=== PATIENT | female | born 1965 | race African-American/Black ===

== ENCOUNTER 2017-04-03 12:27 | Emergency (ER) | payer OTHER ==
--- NOTE | 2017-04-03 13:28 | RAD ---
RIGHT KNEE FOUR VIEWS: History: 51-year-old female with right knee pain. FINDINGS: Some hypertrophic osteophytosis of the posterior superior patella. Increased density in the suprapate llar recess, evidence for joint effusion. Multiple small up to 0.3 cm diameter calcific or ossific fo ci which appear to be within the anterior joint and probably represent multiple intraarticular bodies . There are some tricompartment degenerative changes as well as arthrosis of the proximal tibiofibula r joint. IMPRESSION: Evidence for multiple intraarticular bodies. Joint effusion with suprapatellar recess fluid. Other de generative changes. No acute fracture or dislocation. POS: [facility]
[2017-04-03] MEDS ORDERED: Ketorolac Tromethamine 30 MG/ML VIAL ONE (13:47)
[2017-04-03] MEDS ORDERED: Famotidine/PF 20 mg/2ml Vial ONE (14:43)
== END 2017-04-03 15:10 | disposition home or self-care (01) ==
LOC: ERS 12:27
DX: M25.561 Pain in right knee (principal); E78.5 Hyperlipidemia, unspecified; I10 Essential (primary) hypertension; J45.909 Unspecified asthma, uncomplicated; F31.9 Bipolar disorder, unspecified; F90.9 Attention-deficit hyperactivity disorder, unspecified type; F17.210 Nicotine dependence, cigarettes, uncomplicated; F41.9 Anxiety disorder, unspecified
CPT/HCPCS: 96372; J1885; S0028

== ENCOUNTER 2017-05-09 09:13 | Outpatient (CLI) | payer OTHER | END 2017-05-09 09:14 | disposition home or self-care (01) | LOC: MRI 09:13 → BICMRI 09:14 | PROVIDERS: ATTEND Family Medicine | DX: M54.31 Sciatica, right side (principal); M48.061 Spinal stenosis, lumbar region without neurogenic claudication | CPT/HCPCS: 72148 ==

== ENCOUNTER 2017-10-07 11:08 | Emergency (ER) | payer OTHER ==
[2017-10-07] MEDS ORDERED: Acetaminophen/Codeine 30-300mg Tablet ONE (12:03)
[2017-10-07] MEDS ORDERED: predniSONE 20 MG TAB ONE (12:04)
--- NOTE | 2017-10-07 13:26 | RAD ---
RIGHT KNEE 4 VIEWS: HISTORY: Right knee pain. FINDINGS: Comparison is made with the exam of 05/17/17. Degenerative changes are again seen. No acute fracture , dislocation, or bony destruction is identified. A joint effusion is again seen. Multiple intraart icular bodies in the anterior joint space are redemonstrated. IMPRESSION: Stable exam. POS: [facility]
[2017-10-07] MEDS ORDERED: Ondansetron HCl/PF 4 MG/2 ML Vial ONE (13:45)
== END 2017-10-07 14:05 | disposition home or self-care (01) ==
LOC: ERS 11:08
DX: M10.9 Gout, unspecified (principal); M25.561 Pain in right knee; E78.5 Hyperlipidemia, unspecified; I10 Essential (primary) hypertension; J45.909 Unspecified asthma, uncomplicated; F41.9 Anxiety disorder, unspecified; F31.9 Bipolar disorder, unspecified; F90.9 Attention-deficit hyperactivity disorder, unspecified type; F17.210 Nicotine dependence, cigarettes, uncomplicated
CPT/HCPCS: J2405; J7506

== ENCOUNTER 2017-11-01 11:52 | Outpatient (CLI) | payer OTHER ==
--- NOTE | 2017-11-01 15:29 | MRI ---
MRI RIGHT KNEE WITHOUT CONTRAST: Date: 11/01/17 HISTORY: Pain. Swelling. No trauma. COMPARISON: Knee radiographs dated 10/11/17. FINDINGS: Medial Meniscus: Intact. Lateral Meniscus: There is maceration of the lateral meniscal body with lateral gutter extrusion. There is mucinous degeneration of the PCL. ACL has only mild mucinous degeneration. Extensor Mechanism: Quadriceps tendon, patella, and patellar tendon are all intact. Cartilage: Patellofemoral compartment: High grade chondral fraying of the lateral patellar facet and lateral tr ochlea with some subchondral reactive changes. Medial compartment: Mild chondral fissuring along the posterior weightbearing surfaces of the medial femoral condyle. Lateral compartment: High grade full thickness cartilage fissuring along the central weightbearing s urface and medial femoral condyle and medial tibial plateau posteriorly. Also, along the lateral femo ral condyle, is a high grade cartilage defect extending from the lateral articular margin to the cent ral portion measuring 11.0 mm in transverse x 16.0 mm AP dimension. Soft Tissues: Very large joint effusion. There is a debris-containing popliteal cyst with a thick wall indicating c hronicity. Calcifications are present along the anterior horn of the lateral meniscus, degenerative i n nature. Muscles: There is edema within the popliteus, as well as the anterior and lateral compartment of the leg. Bones: Advanced degenerative change proximal tibiofibular joint. Large osteophytes lateral compartment. Subc hondral impaction fracture of the lateral tibial plateau, likely sequelae of insufficiency. IMPRESSION: 1. Marked edema of the lateral tibial plateau with subchondral insufficiency fracture, likely sequel ae of the lateral meniscal maceration and cartilage loss. 2. Edema within the anterior and lateral compartments of the leg and the popliteus muscle. This may be sequelae of nerve inflammation from the extensive soft tissue edema. 3. Very large joint effusion, as well as complex popliteal cyst with evidence of leak. 4. 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 Large c hondral defect of the lateral compartment. POS: [facility]
== END 2017-11-01 11:53 | disposition home or self-care (01) ==
LOC: MRI 11:52
PROVIDERS: ATTEND Family Medicine
DX: M23.91 Unspecified internal derangement of right knee (principal); R60.0 Localized edema; M25.461 Effusion, right knee; M22.41 Chondromalacia patellae, right knee

== ENCOUNTER 2018-07-25 14:30 | Emergency (ER) | payer OTHER ==
[2018-07-25 15:05] LABS: Bilirubin Negative (Negative); Blood, Urine Trace (Negative); Clarity CLOUDY (Clear); Glucose, Urine (Dipstick) Negative (Negative); Leukocyte Moderate (Negative); Nitrite Negative (Negative); Protein, Urine (Dipstick) Negative (Neg-Trace); Specific Gravity, Urine 1.022 (1.002-1.036); Urobilinogen 0.2 mg/dL (0.2-1.0)
--- NOTE | 2018-07-25 15:06 | RAD ---
UPRIGHT AND SUPINE ABDOMINAL RADIOGRAPHS: INDICATION: Abdominal pain after by mouth intake of mag citrate with a history of constipation for 8 days. FINDINGS: The bowel gas pattern is nonspecific but without overt evidence of obstruction. There are f luid gas levels seen within the colon which can be seen with diarrheal states. There are tubal ligation clips seen within the lower pelvis. There is mild thoracolumbar scoliosis. Lung bases are cl ear. No pneumoperitoneum is demonstrated. There is moderate chronic osteitis pubis. No acute osseous abnormality is evident. IMPRESSION: Air-fluid levels seen within the colon can be seen with diarrheal states. Transcribed Date/Time: 07/25/2018 3:12 PM
[2018-07-25 15:17] LABS: #Basophils 0.1 thou/uL (0.0-0.2); #Eosinphils 0.1 thou/uL (0.0-0.7); #Lymphocytes 2.6 thou/uL (1.20-3.40); #Monocytes 0.4 thou/uL (0.11-0.59); #Neutrophils 7.1 thou/uL (1.40-6.50); %Basophils 0.7 % (0.0-1.0); %Lymphocytes 25.2 % (21.0-51.0); %Neutrophils 69.1 % (42.0-75.0); Hemoglobin 14.4 g/dL (12.0-16.0); Mean Corpuscular HGB CONC 33.1 g/dL (32.0-36.0); Mean Corpuscular Hemoglobin 32.5 pg (27.0-31.0); Mean Corpuscular Volume 98.3 fL (78.0-98.0); Mean Platelet Volume 8.4 fL (7.4-10.4); Platelet Count 223 thou/uL (130-400); RBC Distribution Width 11.6 % (11.5-14.5); Red Blood Cell (RBC) Count 4.43 mill/uL (4.20-5.40); White Blood Cell (WBC) Count 10.2 thou/uL (4.8-10.8)
[2018-07-25 15:19] LABS: Bacteria/HPF 1+ HPF (None Seen); Trichomonas/HPF 1+ HPF (None Seen)
[2018-07-25 15:20] LABS: Hyaline Casts/LPF NONE SEEN LPF (0-3 Hyaline)
[2018-07-25 15:40] LABS: ALT (SGPT) 11 U/L (8-55); AST (SGOT) 13 U/L (5-34); Albumin 4.3 g/dL (3.5-5.0); Alkaline Phosphatase 74 U/L (40-150); Anion Gap 15 mmol/L (10-20); BUN (Urea Nitrogen) 15 mg/dL (9.8-20.1); Bilirubin, Total 0.3 mg/dL (0.2-1.2); Calc. Creatinine Clearance 0 mL/min (70-130); Calcium 9.9 mg/dL (7.8-10.44); Carbon Dioxide 22 mmol/L (22-29); Chloride 104 mmol/L (98-107); Estimated GFR-MDRD 71; Globulin 3.4 g/dL (2.4-3.5); Glucose 92 mg/dL (70-105); Lipase 64 U/L (8-78); Potassium 3.5 mmol/L (3.5-5.1); Protein, Total 7.7 g/dL (6.0-8.3); Sodium 137 mmol/L (136-145)
== END 2018-07-25 16:55 | disposition home or self-care (01) ==
LOC: ERS 14:30
DX: K59.00 Constipation, unspecified (principal); N30.90 Cystitis, unspecified without hematuria; E78.5 Hyperlipidemia, unspecified; I10 Essential (primary) hypertension; J45.909 Unspecified asthma, uncomplicated; F41.9 Anxiety disorder, unspecified; F90.9 Attention-deficit hyperactivity disorder, unspecified type; F31.9 Bipolar disorder, unspecified; F17.210 Nicotine dependence, cigarettes, uncomplicated
CPT/HCPCS: 36415; 74019; 80053; 81003; 81015; 83690; 85025

== ENCOUNTER 2018-12-14 00:32 | Emergency (ER) | payer OTHER ==
[2018-12-14 01:09] LABS: Bilirubin Negative (Negative); Blood, Urine 1+ (Negative); Clarity Turbid (Clear); Glucose, Urine (Dipstick) Normal (Negative); Leukocyte 250 Leu/uL (Negative); Mucous/LPF Rare LPF (<2+); Nitrite Negative (Negative); Protein, Urine (Dipstick) 70 mg/dL (Neg-Trace); Squamous Epithelial 21-50 HPF (0-3); WBC/HPF 21-50 HPF (0-3)
[2018-12-14 01:10] LABS: Bacteria/HPF 1+ HPF (None Seen)
[2018-12-14] MEDS ORDERED: cefTRIAXone\\ROCEPHIN 1 GM VIAL ONE (01:31)
[2018-12-14] MEDS ORDERED: Azithromycin 500 MG VIAL ONE (01:31)
[2018-12-14] MEDS ORDERED: Ketorolac Tromethamine 30 MG/ML VIAL ONE (02:22)
[2018-12-14] MEDS ORDERED: Ondansetron PF 4 MG/2 ML Vial ONE (02:22)
[2018-12-14 02:23] LABS: Mean Corpuscular HGB CONC 34.2 g/dL (32.0-36.0); Mean Corpuscular Hemoglobin 32.8 pg (27.0-31.0); Mean Corpuscular Volume 95.8 fL (78.0-98.0); Mean Platelet Volume 8.1 fL (7.4-10.4); Platelet Count 231 thou/uL (130-400); RBC Distribution Width 11.6 % (11.5-14.5); Red Blood Cell (RBC) Count 3.65 mill/uL (4.20-5.40); White Blood Cell (WBC) Count 20.9 thou/uL (4.8-10.8)
[2018-12-14 02:37] LABS: Band 7 % (5-11); Lymphocytes 3 % (21-51); MDiff Complete? YES; Monocytes 1 % (0-10); Neutrophil 89 % (42-75); Platelet Morphology Comment Appears Adequate; RBC Morphology Normal
[2018-12-14 02:43] LABS: ALT (SGPT) 10 U/L (8-55); AST (SGOT) 11 U/L (5-34); Albumin 2.9 g/dL (3.5-5.0); Alkaline Phosphatase 94 U/L (40-110); Anion Gap 13 mmol/L (10-20); BUN (Urea Nitrogen) 9 mg/dL (9.8-20.1); Bilirubin, Total 0.9 mg/dL (0.2-1.2); Calc. Creatinine Clearance 0 mL/min (70-130); Calcium 8.7 mg/dL (7.8-10.44); Carbon Dioxide 20 mmol/L (22-29); Chloride 105 mmol/L (98-107); Estimated GFR-MDRD 74; Globulin 3.7 g/dL (2.4-3.5); Glucose 109 mg/dL (70-105); Potassium 3.4 mmol/L (3.5-5.1); Protein, Total 6.6 g/dL (6.0-8.3); Sodium 135 mmol/L (136-145)
--- NOTE | 2018-12-14 09:01 | CT ---
PRELIMINARY REPORT/[facility]/EMERGENCY AFTER HOURS PROCEDURE: PROCEDURE INFORMATION: Exam: CT Abdomen And Pelvis Without Contrast Exam date and time: 12/14/2018 1:02 AM Clinical history: 53 years old, female; Abdominal pain; Patient HX: F53 presents to the ED for evalua tion of left flank pain, described as sharp and stabbing, x 3 days. TECHNIQUE: Imaging protocol: Computed tomography of the abdomen and pelvis without contrast. COMPARISON: No relevant prior studies available. FINDINGS: Lungs: Consolidation in the left lung base. Liver: No liver masses. Gallbladder and bile ducts: Normal appearance of the gallbladder. No ductal dilation. Pancreas: No pancreatic mass or ductal dilation. Spleen: No mass. Adrenals: No adrenal nodules. Kidneys and ureters: No nephroureterolithiasis or hydronephrosis. Stomach and bowel: No evidence of obstruction or bowel wall thickening. Appendix: Normal appendix. Intraperitoneal space: Trace free fluid in the pelvis. Vasculature: Atherosclerosis of the aorta without aneurysm. Lymph nodes: No lymphadenopathy. Bladder: The bladder is decompressed. Reproductive: Normal appearance of the uterus and adnexa. Bilateral tubal ligation clips. Bones/joints: Old right lateral seventh rib fracture. Increased sclerosis of the lumbar spine pedicle s and lamina likely due to degenerative changes given extensive bilateral facet arthropathy. Sclerosi s and cystic changes of the pubic symphysis. Chronic mild loss of L1 vertebral body height. Soft tissues: Small bilateral fat-containing inguinal hernias. Tiny fat-containing umbilical hernia. IMPRESSION: 1. Consolidation in the left lung base is consistent with pneumonia. 2. No acute findings in the abdomen or pelvis. 3. No nephroureterolithiasis or hydronephrosis. Thank you for allowing us to participate in the care of your patient. Dictated and Authenticated by: Selam Pablo MD 12/14/2018 1:24 AM Central Time ([place] & [place]) FINAL REPORT CT ABDOMEN AND PELVIS: FINDINGS: There is consolidation in the left lung base. Tiny pericardial effusion. Liver, spleen, pancreas, and kidneys unremarkable. Bowel loops unremarkable. No acute intraabdomina l process. Small amount of fluid in the cul-de-sac is noted. I am in agreement with the preliminary report.
== END 2018-12-14 03:50 | disposition home or self-care (01) ==
LOC: ERS 00:32
DX: J18.1 Lobar pneumonia, unspecified organism (principal); I10 Essential (primary) hypertension; J45.909 Unspecified asthma, uncomplicated; E78.5 Hyperlipidemia, unspecified; E78.00 Pure hypercholesterolemia, unspecified; F41.9 Anxiety disorder, unspecified; F31.9 Bipolar disorder, unspecified; F90.9 Attention-deficit hyperactivity disorder, unspecified type; F17.210 Nicotine dependence, cigarettes, uncomplicated; Z79.899 Other long term (current) drug therapy
CPT/HCPCS: 36415; 74176; 80053; 81003; 81015; 85025; 87040; 96361; 96365; 96367; 96375; J0456; J0696; J1885; J2405

== ENCOUNTER 2019-02-26 00:01 | Inpatient (IN) | payer OTHER ==
[2019-02-26] MEDS ORDERED: Ketorolac Tromethamine 60 MG/2 ML VIAL ONE (00:15)
[2019-02-26] MEDS ORDERED: Ondansetron ODT 4 MG TAB PO PRN (01:51)
[2019-02-26] MEDS ORDERED: Morphine 2 MG/ML SYRINGE SLOW IVP PRN ×2 (01:51→07:05)
[2019-02-26] MEDS ORDERED: Dextrose 5% in Water 1,000 ML IV PRN (01:51)
[2019-02-26] MEDS ORDERED: Ondansetron PF 4 MG/2 ML Vial IVP PRN (01:51)
[2019-02-26] MEDS ORDERED: Dextrose 50% Abboject 50 ML SYRINGE SLOW IVP PRN (01:51)
[2019-02-26] MEDS ORDERED: hydrALAZINE 20 MG/ML VIAL SLOW IVP PRN (01:51)
[2019-02-26 01:55] LABS: #Eosinphils 0.1 thou/uL (0.0-0.7); #Lymphocytes 2.6 thou/uL (1.20-3.40); #Monocytes 0.4 thou/uL (0.11-0.59); #Neutrophils 7.4 thou/uL (1.40-6.50); %Basophils 0.3 % (0.0-1.0); %Eosinophils 0.6 % (0.0-10.0); %Lymphocytes 24.8 % (21.0-51.0); %Monocytes 3.9 % (0.0-10.0); %Neutrophils 70.3 % (42.0-75.0); Hemoglobin 14.9 g/dL (12.0-16.0); Mean Corpuscular HGB CONC 34.3 g/dL (32.0-36.0); Mean Corpuscular Hemoglobin 33.1 pg (27.0-31.0); Mean Corpuscular Volume 96.4 fL (78.0-98.0); Mean Platelet Volume 8.6 fL (7.4-10.4); Platelet Count 180 thou/uL (130-400); Red Blood Cell (RBC) Count 4.52 mill/uL (4.20-5.40); White Blood Cell (WBC) Count 10.5 thou/uL (4.8-10.8)
[2019-02-26] MEDS ORDERED: traMADol HCl 50 MG TAB PO PRN ×2 (02:06→07:05)
[2019-02-26 02:17] LABS: ALT (SGPT) 13 U/L (8-55); AST (SGOT) 18 U/L (5-34); Albumin 4.4 g/dL (3.5-5.0); Alkaline Phosphatase 72 U/L (40-110); Anion Gap 12 mmol/L (10-20); BUN (Urea Nitrogen) 20 mg/dL (9.8-20.1); Bilirubin, Total 0.5 mg/dL (0.2-1.2); Calc. Creatinine Clearance 0 mL/min (70-130); Calcium 9.8 mg/dL (7.8-10.44); Carbon Dioxide 24 mmol/L (22-29); Chloride 106 mmol/L (98-107); Estimated GFR-MDRD 70; Globulin 3.4 g/dL (2.4-3.5); Glucose 86 mg/dL (70-105); Phosphorus 3.5 mg/dL (2.3-4.7); Potassium 4.1 mmol/L (3.5-5.1); Protein, Total 7.8 g/dL (6.0-8.3); Sodium 138 mmol/L (136-145)
[2019-02-26 02:22] LABS: PTT 31.9 SEC (22.9-36.1); Prothrombin Time 12.7 SEC (12.0-14.7)
--- NOTE | 2019-02-26 03:07 | HP ---
REQUESTING PHYSICIAN: Beverly Mccabe MD, ER Physician. CONSULTS: Orthopedic Surgery, Dr. Walton. PRIMARY CARE PHYSICIAN: Akil Giron MD CHIEF COMPLAINT: Left hip pain. HISTORY OF PRESENT ILLNESS: This is a 53-year-old female, who presented to the emergency room with left hip pain after she fell from the back of a large pickup truck. The patient does have a history of schizophrenia, anxiety, depression, and bipolar. The patient states that she had been drinking beer and she slipped and fell, landing on her left hip. The incident happened around 9:30-10:00 p.m. The patient denies hitting her head or losing consciousness. The patient denies feeling weak, dizzy, shortness of breath or having any chest pain prior to falling. The patient reports drinking approximately 2 to 3 beers before falling. The patient denies any drug use. The patient denies any nausea or vomiting. ALLERGIES: NO KNOWN DRUG ALLERGIES. PAST MEDICAL HISTORY: Hypertension, schizophrenia, depression, bipolar, anxiety , arthritis, gout, and asthma. PAST SURGICAL HISTORY: Denies. SOCIAL HISTORY: The patient drinks socially 1 to 2 times a week. Denies any illicit drug use. The patient reports previous history of cocaine use several years ago. The patient smokes approximately 6 cigarettes a day since she was 23. The patient is single, lives at home alone. MEDICATIONS: 1. Seroquel 200 mg daily. 2. Hydrochlorothiazide 25 mg q.a.m. as needed. 3. Tramadol 50 mg once a day. 4. Albuterol inhaler. REVIEW OF SYSTEMS: A 10-point review of systems is negative unless otherwise indicated in the above HPI. OBJECTIVE: VITAL SIGNS: Blood pressure 147/95, pulse 88, respirations 18, temperature 98.4, SpO2 of 98% on room air. GENERAL: Middle-aged female, well-appearing, awake, alert, in no distress. HEENT: Head is atraumatic and normocephalic. Pupils are equal bilateral. Mucous membranes are moist. NECK: Normal range of motion. No cervical tenderness. Trachea midline. RESPIRATORY: Equal chest rise and fall. Bilateral breath sounds clear. No respiratory distress. CARDIAC: Regular rate, regular rhythm. No murmurs. ABDOMEN: Soft, nontender, nondistended. EXTREMITIES: Moves all extremities. Normal movement. Sensation intact. Distal pulses 2+ in all extremities. Tenderness to the left hip with palpation. NEUROLOGIC: GCS 15. No focal deficits. LABORATORY DATA: WBC 10.5, RBC 4.52, hemoglobin 14.9, hematocrit 43.6, platelets 180. PT 12.7, INR 1.0, APTT 31.9. Chemistry; sodium 138, potassium 4.1, chloride 106, BUN 20, creatinine 1.00, estimated GFR 70, glucose 86, calcium 9.8, phosphorus 3.5, magnesium 2.0, AST 18, ALT 13, plasma alcohol less than 10. DIAGNOSTIC DATA: A 12-lead EKG, sinus rhythm, left ventricular hypertrophy, prolonged QTc. Left hip x-ray, impression, nondisplaced left femoral neck fracture. Pelvis x-ray, impression, left femoral neck fracture. Chest x-ray, impression, Cardiomegaly without evidence of acute cardiopulmonary disease. IMPRESSION: 1. Status post fall from back of truck. 2. Left femoral neck fracture. 3. Acute traumatic pain. 4. History of hypertension, schizophrenia, anxiety, and depression. PLAN: We will admit the patient to the surgical floor. The patient will be n.p.o. and with maintenance fluids normal saline at 100 an hour. The patient is pending evaluation by Dr. Walton, Orthopedic Surgery, for plans of left hip fracture. We will place the patient on a pain regimen. We will also place the patient on Serax as she admits to drinking. We will place PT/OT consult to evaluate and treat postop. The plan was discussed with the patient, who agrees. The plan will be discussed with the attending after this dictation. Job ID: [id number] [facility]
[2019-02-26] MEDS: Sodium Chloride 0.9% 1,000 ML IV SCH ×3 (03:56→21:35)
[2019-02-26 04:06] VITALS: BMI 25.4
[2019-02-26] MEDS: Acetaminophen 500 MG TAB PO SCH ×4 (06:29→23:06)
[2019-02-26] MEDS: traMADol HCl 50 MG TAB PO SCH ×4 (06:30→23:06)
[2019-02-26] MEDS: Oxazepam 10 MG CAP PO SCH ×3 (06:31→21:34)
[2019-02-26 07:22] LABS: Bilirubin Negative (Negative); Blood, Urine Negative (Negative); Clarity Clear (Clear); Glucose, Urine (Dipstick) Normal (Negative); Leukocyte 500 Leu/uL (Negative); Nitrite Negative (Negative); Protein, Urine (Dipstick) Negative (Neg-Trace); Squamous Epithelial 0-3 HPF (0-3); Urobilinogen Normal mg/dL (Less than 2)
[2019-02-26] MEDS ORDERED: PROVENTIL INHALER 6.7 G (200 INHALATIONS) INH PRN (07:30)
[2019-02-26 07:35] LABS: Bacteria/HPF 1+ HPF (None Seen)
[2019-02-26 07:43] LABS: RBC/HPF 0-3 HPF (0-3); Trichomonas/HPF 1+ HPF (None Seen)
--- NOTE | 2019-02-26 07:50 | RAD ---
EXAM: Single view of the chest HISTORY: Preop COMPARISON: 03/27/2012 FINDINGS: Single view of the chest shows an enlarged but stable cardiomediastinal silhouette. There i s no evidence of consolidation, mass, or pleural effusion. The bones are unremarkable. IMPRESSION: Cardiomegaly without evidence of acute cardiopulmonary disease
[2019-02-26 08:02] LABS: Amphetamine Not Detected (NotDetected); Barbiturates Screen Not Detected (NotDetected); Benzodiazepine Screen Not Detected (NotDetected); Cocaine Metabolite Screen Detected (NotDetected); Medtox Control Line Valid? VALID (VALID); Medtox Reader # READER 4; Methadone Not Detected (NotDetected); Methamphetamine Not Detected (NotDetected); Opiate Screen Not Detected (NotDetected); Oxycodone Screen Not Detected (NotDetected); Phencyclidine (PCP) Not Detected (NotDetected); THC/Cannabinoid Screen Not Detected (NotDetected); Tricyclic Screen Not Detected (NotDetected)
--- NOTE | 2019-02-26 08:10 | RAD ---
EXAM: 2 views of the left hip HISTORY: Left hip pain COMPARISON: None FINDINGS: 2 views of the left hip shows a minimally displaced fracture of the left femoral neck. No d egenerative changes are seen. No soft tissue swelling is present. IMPRESSION: Left femoral neck fracture.
--- NOTE | 2019-02-26 08:11 | RAD ---
Exam: Single view of the pelvis HISTORY: Pelvic and hip pain after fall COMPARISON: None FINDINGS: A single view the pelvis shows a minimally displaced left femoral neck fracture. No other f ractures are seen. No degenerative changes seen in either hip. Tubal ligation clips are seen in the pelvis. IMPRESSION: Left femoral neck fracture
--- NOTE | 2019-02-26 09:40 | CON ---
DATE OF CONSULTATION: CHIEF COMPLAINT: Left hip pain. HISTORY OF PRESENT ILLNESS: Ms. Perez is a 53-year-old female, who was injured yesterday evening. She was drinking alcohol in a pickup truck in the back. She became unsteady and fell as she was getting out. She landed on her left hip. She had pain and was unable to bear weight. She was taken to the emergency department by EMS. X-rays were obtained, which demonstrated a nondisplaced left femoral neck fracture. Orthopedics was consulted for this injury. She has been admitted to the hospital for further care. The patient drank 2 to 3 beers prior to falling. Of note, she does have an extensive history of psychiatric disorder including schizophrenia, anxiety, depression, and bipolar disorder. PAST MEDICAL HISTORY: Hypertension, schizophrenia, depression, bipolar, anxiety, arthritis, gout, and asthma. PAST SURGICAL HISTORY: Negative. SOCIAL HISTORY: The patient drinks alcohol. She denies active drug use, but does have a history of cocaine use in the past. She smokes cigarettes daily. MEDICATIONS: Include; 1. Seroquel. 2. Hydrochlorothiazide. 3. Tramadol. 4. Albuterol. REVIEW OF SYSTEMS: Positive for left hip pain with any movement. Otherwise, negative 10-point review of systems. IMAGING STUDIES: X-rays of the left hip demonstrate a valgus impacted left femoral neck fracture, which is acute. CT scan confirms this. LABORATORY DATA: Hemoglobin is 14.9. Coagulation studies are within normal limits as well as chemistry studies. PHYSICAL EXAMINATION: VITAL SIGNS: Temperature is 98.6, pulse is 83, respiratory rate is 14, oxygen saturation 98%, blood pressure is 132/92. GENERAL: She is lying supine, alert, oriented, in no apparent distress. RESPIRATORY: Breathing comfortably. ABDOMEN: Nondistended. MUSCULOSKELETAL: The patient's left leg has pain with motion. She is able to flex and extend the feet and ankles. She has atraumatic upper extremities. Normal sensation distally. IMPRESSION: Left femoral neck fracture in a schizophrenic 53-year-old female. PLAN: At this point, the patient will need to go to the operating room for stabilization of her femoral neck fracture. We will plan for percutaneous screw fixation. This will be accomplished today. She will be n.p.o. until after surgery. She will be able to mobilize after that. She will need DVT prophylaxis as well as antibiotic prophylaxis. Job ID: [id number]
[2019-02-26] MEDS: Folic Acid/Vit B Comp W-C PO SCH (10:02)
[2019-02-26] MEDS: Hydrochlorothiazide 25 MG TAB PO SCH (10:02)
[2019-02-26] MEDS: Senokot S 8.6-50 MG TAB PO SCH ×2 (10:02→20:27)
[2019-02-26] MEDS: Polyethylene Glycol 3350 17 GM Packet PO SCH (10:02)
[2019-02-26] MEDS: Thiamine 100 MG TAB PO SCH (10:02)
--- NOTE | 2019-02-26 10:06 | CT ---
PRELIMINARY REPORT/[facility]/EMERGENCY AFTER HOURS PROCEDURE EXAM: CT Pelvis Without Intravenous Contrast. CLINICAL HISTORY: F53 presents to the ED with c/o left hip pain s/p fall onset several hours ago. Pt reports she slipped walking down the stairs TECHNIQUE: Axial computed tomography images of the pelvis without intravenous contrast. CONTRAST: None. COMPARISON: None provided. FINDINGS: HIP JOINTS: Of the right hip is unremarkable. The left hip demonstrates a slight lateral shift to the femoral capital epiphysis which may have been from a congenital slip. BONES: At the femoral neck medially is a minute cortical infraction compatible with undisplaced fract ure seen only on one image; one would expect more cortical interruption or definitive fracture, and t his may well be a nutrient canal No adjacent hematoma is seen to further suggest this is an acute fra cture SOFT TISSUES: Multiple surgical clips within the pelvis along disclose etiology. No acute intrapelvic process and soft tissues MISCELLANEOUS: There is significant degenerative and/or remote posttraumatic changes at the L4/L5 S1 facet articulation perhaps with mild foraminal encroachment at L5-S1 along with areas vacuum joint ph enomenon at the disc as well as calcified bulging annulus. Correlate with MR if clinically appropriat e IMPRESSION: 1. Findings as above; with respect to the left hip, a questionable minute acute cortical infraction i s present versus nutrient foramen. No adjacent soft tissue hematoma 2. Significant degenerative and/or remote posttraumatic changes in the spine. Consider MR spine and l eft hip for further evaluation; one couldn't evaluate for marrow edema for example in the hip. 3. Postoperative and other changes as above ELECTRONICALLY SIGNED BY: Yoan Gomez M.D. Feb 26, 2019 1:20:24 AM DEPUTY SHERIFF GENERALIST FINAL REPORT EMERGENT AFTER HOURS CT OF THE PELVIS WITHOUT CONTRAST: FINDINGS/IMPRESSION: I agree with the findings and impression given in the preliminary report per [facility]. However, the abnormality in the left femoral neck is not a nutrient channel but represents an ac sujata fracture. POS: [facility]
[2019-02-26] MEDS ORDERED: metroNIDAZOLE 500 MG TAB PO SCH (10:15)
[2019-02-26] MEDS ORDERED: PROPOFOL 200 MG/20 ML VIAL ONE (10:54)
[2019-02-26] MEDS ORDERED: Rocuronium Bromide 10 MG/ML (10ML VIAL) ONE (10:54)
[2019-02-26] MEDS ORDERED: Ondansetron PF 4 MG/2 ML Vial ONE (10:54)
[2019-02-26] MEDS ORDERED: Succinylcholine Chloride 20 MG/ML 10 ml SYRINGE FS ONE (10:54)
--- NOTE | 2019-02-26 11:13 | PRG ---
DATE OF SERVICE: 02/26/2019 SUBJECTIVE: The patient was seen this evening, sleeping comfortably in bed. She was easily arousable, and mentation was normal. She is status post fall from back of truck with a left subcapital hip fracture. She is going to the OR today with Orthopedic Surgery. She had no complaints at the time of my evaluation and reported pain was well controlled. OBJECTIVE: VITAL SIGNS: Temperature 98.6, pulse 83, respirations 14, oxygen saturation 98% on room air, blood pressure 132/92. GENERAL: Well appearing, middle-aged female, lying in bed with no signs of acute distress. PULMONARY: Equal chest rise and fall. Clear breath sounds bilaterally. No signs of acute respiratory distress. CARDIAC: Regular rate and rhythm. No murmurs, gallops, or rubs. GI: Abdomen is soft, nontender, nondistended. EXTREMITIES: 2+ pulses in all extremities. Gross motor and sensation intact. No significant swelling noted. NEURO: GCS is 15. LABORATORY FINDINGS: UA completed this morning is positive for bacteria and leukocyte esterase, also positive for Trichomonas. Urine drug screen completed this morning also shows positive for cocaine metabolites. DIAGNOSTIC FINDINGS: There are no new diagnostic findings to report. ASSESSMENT: 1. Status post fall from the back of a truck. 2. Left subcapital hip fracture. 3. Urinary tract infection. 4. Trichomoniasis. 5. Cocaine abuse. 6. History of bipolar disorder, depression, schizophrenia, hypertension, gout, and anxiety. PLAN: The patient is to go to the OR today with Dr. Walton for fixation of her left hip fracture. Postoperatively, she will work with Physical and Occupational Therapy and will work on pain control. The patient will receive Cipro for 3 days for her urinary tract infection. We will follow up urine cultures. She will also receive a one time 2 g dose of Flagyl for Trichomoniasis detected on the UA. We will also screen the patient for gonorrhea and chlamydia infections and treat if positive. Postoperatively, the patient will likely need placement at rehab facility. Job ID: [id number]
[2019-02-26] MEDS: Famotidine/PF 20 mg/2ml Vial SLOW IVP SCH ×2 (12:36→20:18)
[2019-02-26] MEDS ORDERED: CEFAZOLIN 2 GM in Premix Bag 1 BAG IVPB SCH (14:00)
[2019-02-26] MEDS: Cipro 250 MG TAB PO SCH (20:18)
[2019-02-26] MEDS ORDERED: Fentanyl 100 MCG/2 ML VIAL ONE ×2 (20:32→21:36)
--- NOTE | 2019-02-26 21:20 | PRG ---
DATE OF SERVICE: 02/26/2019 SUBJECTIVE: The patient was seen this evening, awake, alert, in no distress. The patient has been n.p.o. pending surgery for her left subcapital hip fracture. The patient reports that her pain is well controlled at this time. OBJECTIVE: VITAL SIGNS: Stable, afebrile. GENERAL: Well-appearing, middle-aged female, lying in hospital bed, in no acute distress. PULMONARY: Equal chest rise and fall, bilateral breath sounds clear. EXTREMITIES: Moves all extremities. 2+ distal pulses in all extremities. ASSESSMENT: 1. Status post fall from back of truck. 2. Left subcapital hip fracture. 3. Urinary tract infection. 4. Trichomonas. 5. Cocaine abuse. 6. History of bipolar disorder, depression, schizophrenia, hypertension, gout, and anxiety. PLAN: Continue n.p.o. and maintenance IV fluids. The patient should be going to the OR shortly for repair of her left hip fracture. We will continue the patient's Cipro for her urinary tract infection. We will have the patient work with physical therapy and occupational therapy tomorrow. We will place the patient on chemical DVT prophylaxis as long as the patient's hemoglobin is stable in the morning. The plan was discussed with the patient who agrees. Job ID: [id number]
[2019-02-26] MEDS ORDERED: Ondansetron HCl/PF 4 MG/2 ML Vial IVP PRN (21:31)
[2019-02-26] MEDS ORDERED: Promethazine HCl 25 MG/ML VIAL SLOW IVP PRN (21:31)
[2019-02-26] MEDS ORDERED: Promethazine HCl 25 MG/ML VIAL IM PRN (21:31)
[2019-02-26] MEDS: CEFAZOLIN 2 GM in Premix Bag 1 BAG IVPB SCH (23:07)
--- NOTE | 2019-02-27 02:16 | OP ---
DATE OF PROCEDURE: 02/26/2019 OPERATION: Left femur percutaneous screw fixation of femoral neck fracture. PREOPERATIVE DIAGNOSIS: Left femoral neck fracture. POSTOPERATIVE DIAGNOSIS: Left femoral neck fracture. COMPLICATIONS: None. ESTIMATED BLOOD LOSS: Minimal. ANESTHESIA: General. IMPLANTS: Three 6.5 mm cannulated screws from [employer] were utilized. INDICATIONS: Ms. Perez is a 53-year-old female who fell and fractured her left hip. She has been indicated for left hip percutaneous pinning to restore stability and allow early mobilization as well as provide pain control. Risks have been reviewed in detail. She has elected to proceed with the operation. DESCRIPTION OF OPERATION: Ms. Perez was identified in the preoperative holding area. Her correct extremity was marked. She was carried to the operating room. She was positioned supine. General anesthesia was induced. A multidisciplinary time-out was performed. The left lower extremity was prepped and draped in sterile fashion. We applied gentle traction. At this point, we proceeded to use intraoperative x-ray to obtain an appropriate start point for the screws. We made a small incision. We then inserted a guidewire in the inferior position as well as to superiorly place guidewires in an inverted triangle pattern. We checked x-ray carefully while placing these. We then measured our guidewires. Next, we overdrilled the guidewires and then placed three 6.5 mm screws over the guidewires. These were tightened appropriately. At this point, we again checked multiple x-rays. We then removed the guide pins and closed our wound. The patient was taken to the recovery room in good condition without complication. Job ID: [id number]
[2019-02-27] MEDS: Acetaminophen 500 MG TAB PO SCH ×2 (05:51→13:44)
[2019-02-27] MEDS: Cipro 250 MG TAB PO SCH (05:52)
[2019-02-27] MEDS: traMADol HCl 50 MG TAB PO SCH ×2 (05:52→13:44)
[2019-02-27] MEDS: Oxazepam 10 MG CAP PO SCH ×2 (05:52→15:27)
[2019-02-27 06:19] LABS: #Eosinphils 0.1 thou/uL (0.0-0.7); #Lymphocytes 1.5 thou/uL (1.20-3.40); #Monocytes 0.3 thou/uL (0.11-0.59); #Neutrophils 5.2 thou/uL (1.40-6.50); %Basophils 0.5 % (0.0-1.0); %Eosinophils 1.8 % (0.0-10.0); %Lymphocytes 21.3 % (21.0-51.0); %Monocytes 4.4 % (0.0-10.0); %Neutrophils 71.9 % (42.0-75.0); Mean Corpuscular HGB CONC 31.1 g/dL (32.0-36.0); Mean Corpuscular Volume 96.6 fL (78.0-98.0); Mean Platelet Volume 8.9 fL (7.4-10.4); Platelet Count 168 thou/uL (130-400); Red Blood Cell (RBC) Count 4.33 mill/uL (4.20-5.40); White Blood Cell (WBC) Count 7.2 thou/uL (4.8-10.8)
[2019-02-27 06:35] LABS: Anion Gap 9 mmol/L (10-20); BUN (Urea Nitrogen) 16 mg/dL (9.8-20.1); Calc. Creatinine Clearance 68 mL/min (70-130); Calcium 8.1 mg/dL (7.8-10.44); Carbon Dioxide 22 mmol/L (22-29); Chloride 110 mmol/L (98-107); Estimated GFR-MDRD 73; Glucose 101 mg/dL (70-105); Magnesium 1.9 mg/dL (1.6-2.6); Phosphorus 3.6 mg/dL (2.3-4.7); Sodium 137 mmol/L (136-145)
[2019-02-27] MEDS ORDERED: PHOS-NAK 1 PKT PACK PO SCH (07:15)
[2019-02-27] MEDS ORDERED: Magnesium 2 GM/50 ML 2 GM in Premix Bag 1 BAG IVPB SCH (07:15)
[2019-02-27] MEDS ORDERED: Acetaminophen/Codeine 30-300mg Tablet PO PRN (08:02)
[2019-02-27] MEDS: Hydrochlorothiazide 25 MG TAB PO SCH (08:57)
[2019-02-27] MEDS: Folic Acid/Vit B Comp W-C PO SCH (08:58)
[2019-02-27] MEDS: Senokot S 8.6-50 MG TAB PO SCH (08:58)
[2019-02-27] MEDS: Thiamine 100 MG TAB PO SCH (08:59)
[2019-02-27] MEDS: Acetaminophen/Codeine 30-300mg Tablet PO PRN ×2 (08:59→15:16)
[2019-02-27] MEDS ORDERED: Aspirin 81 mg Enteric Coated Tablet PO SCH (09:00)
[2019-02-27] MEDS: CEFAZOLIN 2 GM in Premix Bag 1 BAG IVPB SCH (09:02)
[2019-02-27] MEDS: Polyethylene Glycol 3350 17 GM Packet PO SCH (09:02)
--- NOTE | 2019-02-27 09:15 | RAD ---
LEFT HIP TWO VIEWS: HISTORY: Left femoral neck fracture. FINDINGS: Four spot fluoroscopic intraoperative images of the left hip demonstrate interval placement of three pins to fix the femoral neck fracture seen on the earlier exam of the same day. POS: [facility]
--- NOTE | 2019-02-27 09:35 | PRG ---
DATE OF SERVICE: 02/27/2019 SUBJECTIVE: The patient was seen this morning, sitting up in bed with no signs of acute distress. She reported her pain is well controlled, tolerating her breakfast. She has voided since surgery. She was up and about with this nurse overnight to the bathroom. She has not seen PT/OT yet and reports she does have good help at home. No stairs in her home. OBJECTIVE: VITAL SIGNS: Temperature 98.7, pulse 85, respirations 16, oxygen saturation 97% on room air, and blood pressure 122/87. GENERAL: Well-appearing middle-aged female, sitting up in bed with no signs of acute distress. PULMONARY: Equal chest rise and fall. Clear breath sounds bilaterally. No signs of acute respiratory distress. CARDIAC: Regular rate and rhythm. No murmurs, gallops, or rubs. GI: Abdomen is soft, nontender, and nondistended. EXTREMITIES: 2+ pulses in all extremities. Gross motor and sensation are intact. No significant swelling noted. NEUROLOGIC: GCS is 15. LABORATORY FINDINGS: White count 7.2, hemoglobin 13.0, hematocrit 41.8, platelets 168. Sodium 137, potassium 4.0, chloride 110, bicarb 22, BUN 16, creatinine 0.96, glucose 101, phosphorus 3.6, and magnesium 1.9. Urine culture preliminary report demonstrates mixed skin nya present. DIAGNOSTIC FINDINGS: There are no new diagnostic findings to report. ASSESSMENT: 1. Status post fall from truck. 2. Left subcapital hip fracture, status post repair. 3. Urinary tract infection, culture is still pending. 4. Trichomoniasis, treated. 5. Cocaine abuse. 6. History of bipolar disorder, depression, schizophrenia, hypertension, gout, and anxiety. PLAN: Continue regular diet and current pain medications. Continue home medications. Continue physical and occupational therapy. The patient is 50% weightbearing on the left lower extremity. She will work with PT/OT today for the first time. She is very motivated to go home, but we will follow up their recommendations and consider a short stay at rehab if they deem it necessary. She will be ready for discharge likely tomorrow. Start aspirin 81 mg b.i.d. for chemo DVT prophylaxis. Replace phosphorus and magnesium. Job ID: [id number]
[2019-02-27 11:35] VITALS: BP 121/88; TEMP 97.8
== END 2019-02-27 16:05 | disposition home or self-care (01) | DRG 481 ==
LOC: ERS 00:01 → SURG B 03:39
PROVIDERS: ADMIT Orthopaedic Surgery; ATTEND Orthopaedic Surgery
PROC: 0QH734Z Insertion of Internal Fixation Device into Left Upper Femur, Percutaneous Approach (ICD-10-PCS; principal; 2019-02-26)
DX: S72.012A Unspecified intracapsular fracture of left femur, initial encounter for closed fracture (principal); N39.0 Urinary tract infection, site not specified; W17.89XA Other fall from one level to another, initial encounter; I10 Essential (primary) hypertension; F20.9 Schizophrenia, unspecified; F41.9 Anxiety disorder, unspecified; F31.9 Bipolar disorder, unspecified; A59.9 Trichomoniasis, unspecified; F14.10 Cocaine abuse, uncomplicated; M10.9 Gout, unspecified; Z79.899 Other long term (current) drug therapy; Z88.6 Allergy status to analgesic agent
CPT/HCPCS: 36415; 71045; 72170; 72192; 76000; 80048; 80053; 80306; 80307; 81001; 83735; 84100; 85025; 85610; 85730; 87086; 93005; 96372; C1713; C1769; G0390; J0690; J1885; J2405; J2704; J3010; J3475; S0028

== ENCOUNTER 2019-02-28 10:30 | Observation (INO) | payer OTHER ==
[2019-02-28] MEDS ORDERED: HYDROcodone/Acetaminophen 10/325 mg Tablet ONE (11:27)
--- NOTE | 2019-02-28 11:36 | RAD ---
XR Hip Lt 2-3 View History: Hip pain Comparison: Radiograph February 26, 2019 Findings: Similar appearance of the 3 percutaneous pins through the femoral neck fracture which is vi sualized. Mild impaction and valgus angulation. There is sclerosis of the pubic symphysis. Obturator ring is intact. No acute superimposed fracture. Skin surgical clips. Impression: No acute superimposed abnormality.
[2019-02-28] MEDS ORDERED: Dextrose 50% Abboject 50 ML SYRINGE SLOW IVP PRN (13:45)
[2019-02-28] MEDS ORDERED: Dextrose 5% in Water 1,000 ML IV PRN (13:45)
[2019-02-28] MEDS ORDERED: hydrALAZINE 20 MG/ML VIAL SLOW IVP PRN (13:45)
[2019-02-28] MEDS ORDERED: Ondansetron ODT 4 MG TAB PO PRN (13:45)
[2019-02-28] MEDS ORDERED: Cyclobenzaprine 10 MG TAB PO PRN (13:47)
[2019-02-28] MEDS ORDERED: traMADol HCl 50 MG TAB PO PRN (13:47)
[2019-02-28] MEDS: traMADol HCl 50 MG TAB PO PRN (15:37)
[2019-02-28] MEDS: Gabapentin 300 MG CAP PO SCH ×2 (15:37→20:29)
[2019-02-28] MEDS: Acetaminophen 500 MG TAB PO SCH (15:37)
--- NOTE | 2019-02-28 15:46 | HP ---
REQUESTING PHYSICIAN: Dr. Kilgore. TRAUMA SURGEON: Dr. Mathew. CONSULTING PHYSICIANS: None. HISTORY OF PRESENT ILLNESS: The patient is a 53-year-old female, who presented to the emergency department today complaining of pain and inability to care for herself. She was previously admitted to the Trauma Service and discharged yesterday morning, reported that she had good help at home, and had good pain management during her hospital stay. However, her children were not able to care for her, and she did not fill her prescriptions, and thus she returned to the emergency department with pain. She is now agreeing to go to rehab. Previously, she had denied rehab. She is readmitted to observation for pain control, physical therapy, and placement at acute rehab facility. She has signed paperwork. REVIEW OF SYSTEMS: All additional 10-point review of systems negative except as indicated above. PAST MEDICAL HISTORY: Hypertension, schizophrenia, depression, bipolar disorder , anxiety, arthritis, gout, and asthma. PAST SURGICAL HISTORY: The patient had a left femur percutaneous screw fixation of the femoral neck fracture on February 26, 2019. SOCIAL HISTORY: The patient drinks socially about 1 or 2 times a week. She has a history of cocaine abuse. She smokes about 6 cigarettes a day for the past 25 years. She lives at home alone, but her children come by very often. HOME MEDICATIONS: 1. Seroquel. 2. Hydrochlorothiazide. 3. Tramadol. 4. Albuterol inhaler. 5. Aspirin 81 mg b.i.d. 6. Tylenol No.3. 7. Cipro. PHYSICAL EXAMINATION: VITAL SIGNS: Temperature 98, pulse 89, respirations 16, oxygen saturation 98% on room air, blood pressure 148/89. GENERAL: Well-appearing middle-aged female, sitting up in bed with no signs of acute distress. PULMONARY: Equal chest rise and fall. Clear breath sounds bilaterally. No signs of acute respiratory distress. CARDIAC: Regular rate and rhythm. No murmurs, gallops, or rubs. GI: Abdomen is soft, nontender, nondistended. EXTREMITIES: 2+ pulses in all extremities. Gross motor and sensation intact. Surgical site on the left lateral thigh with sylvia in place, clean, dry, and intact. NEURO: GCS is 15. LABORATORY FINDINGS: There are no laboratory findings to discuss. DIAGNOSTIC FINDINGS: X-ray of the left hip demonstrates no acute superimposed abnormalities. ASSESSMENT: 1. Re-admission to OBS for pain control. 2. Mechanical fall from the bed of a truck. 3. Left femoral neck fracture, status post repair. 4. History of hypertension, schizophrenia, depression, bipolar disorder, anxiety , arthritis, gout, and asthma. PLAN: The patient will be admitted to OBS. She will be seen by Physical and Occupational Therapy. Case Management has already evaluated the patient and is sending referral information to a rehab facility. We will start the patient on p.o. pain medications as well as DVT prophylaxis with SCDs and aspirin 81 mg b.i.d. On her original admission, the patient was positive for Trichomonas infection and was treated; however, urine gonorrhea and chlamydia were not completed and we will complete those at this time. The patient was discussed with Dr. Mathew before this dictation. Job ID: [id number] MTDD
[2019-02-28 17:39] VITALS: BMI 25.8
[2019-02-28] MEDS ORDERED: PROVENTIL INHALER 6.7 G (200 INHALATIONS) INH PRN (18:30)
[2019-02-28] MEDS: Aspirin 81 mg Enteric Coated Tablet PO SCH (20:29)
[2019-02-28] MEDS: Senokot S 8.6-50 MG TAB PO SCH (20:30)
--- NOTE | 2019-02-28 23:02 | PRG ---
DATE OF SERVICE: 02/28/2019 SUBJECTIVE: The patient remains on the surgical floor. The patient is postop day #2, status post percutaneous screw fixation of her left femoral neck fracture. The patient is currently sleeping comfortably. Nursing staff reports no acute events. OBJECTIVE: VITAL SIGNS: Stable, afebrile. GENERAL: Well-appearing middle-aged female, sleeping comfortably in no acute distress. PULMONARY: Equal chest rise and fall, breath sounds are even and nonlabored. No acute respiratory distress. ASSESSMENT: 1. Readmission to [facility] for pain control. 2. Mechanical fall from bed of truck. 3. Postop day #2 left femoral neck fracture repair. 4. History of hypertension, schizophrenia, depression, bipolar disorder, anxiety, arthritis, gout, and asthma. PLAN: Continue supportive care and pain regimen. Continue to have Physical and Occupational Therapy work with the patient. Case Management has sent an another referral to rehab. Continue mechanical and chemical DVT prophylaxis. The patient is pending placement to inpatient rehab. Job ID: [id number]
[2019-03-01] MEDS: traMADol HCl 50 MG TAB PO PRN (00:11)
[2019-03-01] MEDS: Acetaminophen 500 MG TAB PO SCH ×5 (00:12→23:05)
[2019-03-01] MEDS: Aspirin 81 mg Enteric Coated Tablet PO SCH ×2 (08:41→20:18)
[2019-03-01] MEDS: Gabapentin 300 MG CAP PO SCH ×3 (08:41→20:18)
[2019-03-01] MEDS: Polyethylene Glycol 3350 17 GM Packet PO SCH (08:43)
[2019-03-01] MEDS: Senokot S 8.6-50 MG TAB PO SCH ×2 (08:43→20:18)
[2019-03-01] MEDS ORDERED: Hydrochlorothiazide 25 MG TAB PO SCH (09:00)
--- NOTE | 2019-03-01 11:27 | PRG ---
DATE OF SERVICE: 03/01/2019 SUBJECTIVE: The patient was seen this morning lying in bed with no signs of acute distress. She reported her pain is much well controlled from yesterday and is moving around comfortably, tolerating a regular diet, voiding without issues. OBJECTIVE: VITAL SIGNS: Temperature 98.2, pulse 99, respirations 20, oxygen saturation 99% on room air, blood pressure 99/67. GENERAL: Well-appearing middle-aged female, sitting up in bed with no signs of acute distress. PULMONARY: Equal chest rise and fall. Clear breath sounds bilaterally. No signs of acute respiratory distress. CARDIAC: Regular rate and rhythm. No murmurs, gallops, or rubs. GI: Abdomen is soft, nontender, and nondistended. EXTREMITIES: 2+ pulses in all extremities. Gross motor and sensation are intact. No significant swelling noted. NEUROLOGIC: GCS is 15. LABORATORY FINDINGS: There are no new laboratory findings to discuss. DIAGNOSTIC FINDINGS: There are no new diagnostic findings to discuss. ASSESSMENT: 1. Postoperative pain, resolved. 2. Mechanical fall from bed of truck. 3. Left femoral neck fracture, status post repair. 4. History of hypertension, schizophrenia, bipolar, depression, anxiety, arthritis, gout, and asthma. PLAN: Continue working with Physical and Occupational Therapy. Continue current diet and pain regimen. Continue DVT prophylaxis with aspirin 81 mg b.i.d. Pending urine gonorrhea and chlamydia. We will follow up at this time. This patient was discussed with Dr. Taylor before this dictation. The patient is pending placement at acute rehab facility. Job ID: [id number]
--- NOTE | 2019-03-01 22:21 | PRG ---
DATE OF SERVICE: 03/01/2019 SUBJECTIVE: The patient remains on the surgical floor. The patient is currently awake and alert, in no distress. The patient just returned from the restroom and ambulating well with her walker. The patient's pain is well controlled at this time. The patient is tolerating a regular diet. The patient voices no complaints or concerns at this time. OBJECTIVE: VITAL SIGNS: Stable, afebrile. GENERAL: Well-appearing, middle-aged female, awake, alert, in no distress. PULMONARY: Equal chest rise and fall, good inspiratory and expiratory effort. No respiratory distress. EXTREMITIES: Moves all extremities, no significant swelling. NEUROLOGIC: GCS 15. ASSESSMENT: 1. Postoperative pain, resolved. 2. Mechanical fall from bed of truck. 3. Left femoral neck fracture, status post repair. 4. History of hypertension, schizophrenia, bipolar, depression, anxiety, arthritis, gout, and asthma. PLAN: Continue to have the patient work with Physical Therapy. Continue supportive care. Continue DVT prophylaxis. The patient is pending placement to inpatient rehab. The plan was discussed with the patient who agrees. Job ID: [id number]
[2019-03-02] MEDS: Acetaminophen 500 MG TAB PO SCH ×4 (05:13→23:24)
[2019-03-02] MEDS: Aspirin 81 mg Enteric Coated Tablet PO SCH ×2 (09:04→20:29)
[2019-03-02] MEDS: Gabapentin 300 MG CAP PO SCH ×3 (09:04→20:29)
[2019-03-02] MEDS: Polyethylene Glycol 3350 17 GM Packet PO SCH (09:07)
[2019-03-02] MEDS: Senokot S 8.6-50 MG TAB PO SCH ×2 (09:07→22:15)
[2019-03-02] MEDS: Hydrochlorothiazide 25 MG TAB PO SCH (09:07)
--- NOTE | 2019-03-02 10:53 | PRG ---
DATE OF SERVICE: 03/02/2019 SUBJECTIVE: The patient was seen this morning sitting up in bed talking on the phone with no signs of acute distress. Nursing reported no acute events. The patient states her pain is well controlled and had no complaints. OBJECTIVE: VITAL SIGNS: Temperature 98.0, pulse 90, respirations 16, oxygen saturation 98% on room air, and blood pressure 118/83. GENERAL: Well-appearing middle-aged female, sitting up in bed with no signs of acute distress. PULMONARY: Equal chest rise and fall. Clear breath sounds bilaterally. No signs of acute respiratory distress. CARDIAC: Regular rate and rhythm. GI: Abdomen is soft, nontender, nondistended. EXTREMITIES: 2+ pulses in all extremities. No significant swelling noted. Gross motor and sensation are intact. NEURO: GCS is 15. LABORATORY FINDINGS: There are no new laboratory findings to discuss. DIAGNOSTIC FINDINGS: There are no new diagnostic findings to discuss. ASSESSMENT: 1. Postoperative pain, resolved. 2. Mechanical fall from bed of truck. 3. Left femoral neck fracture, status post repair. 4. History of hypertension, schizophrenia, bipolar, depression, anxiety, arthritis, gout, and asthma. PLAN: Continue physical and occupational therapy. Continue current diet and pain regimen. The patient is ready for discharge at this time and is pending approval for acute rehab facility. Job ID: [id number]
--- NOTE | 2019-03-02 22:46 | PRG ---
DATE OF SERVICE: SUBJECTIVE: Patient remains on the surgical floor. Patient is awake and alert, in no distress. Patient denies any pain at this time. Patient states she continues to do very well with physical therapy. Patient continues to have a good appetite and voices no complaints or concerns. OBJECTIVE: VITAL SIGNS: Stable, afebrile. GENERAL: Well-appearing, middle-aged female, sitting up in the hospital bed, in no acute distress. PULMONARY: Equal chest rise and fall, bilateral breath sounds clear. ASSESSMENT: 1. Postoperative pain, resolved. 2. Mechanical fall from bed of a truck. 3. Left femoral neck fracture, status post repair. 4. History of hypertension, schizophrenia, bipolar, depression, anxiety, arthritis, gout, and asthma. PLAN: Continue physical and occupational therapy. Continue current diet and pain regimen. Patient is ready for discharge at this time. Patient is pending approval for inpatient rehab. Job ID: [id number]
[2019-03-03] MEDS: Acetaminophen 500 MG TAB PO SCH ×2 (05:26→13:33)
[2019-03-03] MEDS: Hydrochlorothiazide 25 MG TAB PO SCH (08:29)
[2019-03-03] MEDS: Polyethylene Glycol 3350 17 GM Packet PO SCH (08:29)
[2019-03-03] MEDS: Gabapentin 300 MG CAP PO SCH (08:29)
[2019-03-03] MEDS: Aspirin 81 mg Enteric Coated Tablet PO SCH (08:29)
[2019-03-03] MEDS: Senokot S 8.6-50 MG TAB PO SCH (08:30)
[2019-03-03 12:23] VITALS: BP 148/93; TEMP 98.3
--- NOTE | 2019-03-03 16:52 | PRG ---
DATE OF SERVICE: 03/03/2019 ADMISSION DIAGNOSIS: Status post mechanical fall from truck, left femoral neck fracture and postoperative pain. DISCHARGE DIAGNOSIS: Status post mechanical fall from truck, left femoral neck fracture and postoperative pain. CONSULTING PHYSICIAN: None. PROCEDURES: None. HOSPITAL COURSE: The patient is a 53-year-old female who presented to the emergency department with significant left upper extremity pain. The patient had just been discharged the day before after left femur percutaneous screw fixation of the femoral neck. The patient reported that her family was not taking good care of her and she was not able to get her pain medications filled. She did agree to be re-evaluated by PT and possibly go to rehab if she was still having pain in a couple of days. She was admitted to observation. The patient's information was sent to rehab. However, before she could be accepted by insurance, her condition improved and she was discharged home with pain medications and instructions to follow up with Orthopedic Surgery. DISCHARGE DISPOSITION: Home. DISCHARGE CONDITION: Satisfactory. PHYSICAL EXAMINATION: VITAL SIGNS: Temperature 97.9, pulse 95, respirations 14, oxygen saturation 95% on room air, blood pressure 134/80. GENERAL: Well-appearing middle-aged female, sitting up in bed with no signs of acute distress. PULMONARY: Equal chest rise and fall, clear breath sounds bilaterally. No signs of acute respiratory distress. CARDIAC: Regular rate and rhythm. No murmurs, gallops, or rubs. GASTROINTESTINAL: Abdomen soft, nontender, nondistended. EXTREMITIES: 2+ pulses in all extremities. Gross motor and sensations intact. No significant swelling noted. NEUROLOGIC: GCS is 15. DISCHARGE INSTRUCTIONS: The patient was discharged home, activity as tolerated, 50% weightbearing to the left lower extremity. She has a regular diet. PT was previously ordered for her on her previous admission. She will have a walker. DISCHARGE MEDICATIONS: Include 1. Tylenol. 2. ProAir inhaler. 3. Aspirin. 4. Gabapentin. 5. Hydrochlorothiazide. 6. MiraLAX. 7. Seroquel. 8. Tramadol. FOLLOWUP APPOINTMENTS: The patient is to follow up with Dr. Walton of Orthopedic Surgery. No need for followup in Trauma Clinic. This is a summary of the patient's hospitalization. For full details, please see her medical record in its entirety. Job ID: [id number]
[2019-03-05 00:55] LABS: Chlam.trachomatis by PCR,Urine Not Detected (NotDetected)
== END 2019-03-03 13:33 | disposition home or self-care (01) ==
LOC: ERS 10:30 → SURG A 15:20
PROVIDERS: ADMIT Emergency Medicine; ATTEND Emergency Medicine
DX: G89.18 Other acute postprocedural pain (principal); I10 Essential (primary) hypertension; F20.9 Schizophrenia, unspecified; F31.9 Bipolar disorder, unspecified; F41.9 Anxiety disorder, unspecified; M19.90 Unspecified osteoarthritis, unspecified site; M10.9 Gout, unspecified; J45.909 Unspecified asthma, uncomplicated; F17.210 Nicotine dependence, cigarettes, uncomplicated; A54.9 Gonococcal infection, unspecified; A74.9 Chlamydial infection, unspecified; S72.002D Fracture of unspecified part of neck of left femur, subsequent encounter for closed fracture with routine healing; Z79.82 Long term (current) use of aspirin; Z79.899 Other long term (current) drug therapy; Z88.6 Allergy status to analgesic agent; V89.9XXD Person injured in unspecified vehicle accident, subsequent encounter
CPT/HCPCS: 87491; 87591; G0378

== ENCOUNTER 2019-04-21 03:21 | Emergency (ER) | payer OTHER ==
[2019-04-21] MEDS ORDERED: Albuterol Sulfate 2.5 mg/3 ml Neb ONE (03:41)
--- NOTE | 2019-04-21 08:01 | RAD ---
RADIOGRAPH CHEST 1 VIEW: DATE: 04/21/2019 TIME: 3:14 AM HISTORY: 53-year-old female with dyspnea COMPARISON: 02/26/2019 FINDINGS: New finding of interstitial edema. Mild cardiomegaly, new or greater than on prior study. No pneumoth orax. IMPRESSION: Pulmonary interstitial edema, either due to congestive heart failure and/or fluid volume overload.
--- NOTE | 2019-04-21 08:35 | CT ---
PRELIMINARY REPORT/[facility]/EMERGENCY AFTER HOURS PROCEDURE: CTA ANGIO CHEST W WO CON History: ER 8... 53 yo F presents to ED via EMS with c/o SOB. pt repots gradually worsening SOB for t he past 4 days, with associated wheezing and cough with clear sputum. pt reports hx of asthma and hyp ertension Comparison: None Findings: There is moderate cardiomegaly. No pericardial effusion identified. No pulmonary embolism identified. Evaluation of the distal branches is limited secondary to respira tory motion artifact. Thoracic aorta is limited in evaluation secondary to timing of contrast. No aneurysmal dilatation i dentified. Mild atherosclerotic changes of the aorta and coronary arteries. Small hiatal hernia. There is suggestion of mild wall prominence of the distal esophagus. Esophagi tis cannot be excluded. Mildly prominent mediastinal and hilar lymph nodes are nonspecific. Bilateral vascular congestive changes with small bilateral pleural effusions. Correlate for failure. There are patchy airspace opacities in the right upper lobe with minimal involvement of the right mi ddle lobe, lingula and lung bases. No evidence of pneumothorax. There is reflux of contrast into the IVC and hepatic veins. There is mild wall prominence of the stomach which may reflect underdistention. Mild osseous degenerative changes. There is compression deformity of L1 with mild loss of height of the superior endplate. Schmorl's node is present. No cortical step-off or prevertebral soft tissue swelling. This may be chronic. Correlate with point tenderness. Impression: 1. No pulmonary embolism identified. Limited evaluation of the distal branches secondary to motion. 2. Findings concerning for failure. 3. Superimposed patchy airspace opacities, most pronounced in the right upper lobe with minimal opac ities in the lung bases, right middle lobe and lingula. Correlate for pneumonia in the appropriate c linical setting. Nonspecific prominence of the mediastinal and hilar lymph nodes are likely reactive . 4. Wall thickening of the stomach as well as suggestion of mild wall thickening of the distal esopha stephan, which may relate reflect underdistention. Gastritis and esophagitis is not excluded. 5. Age-indeterminate L1 compression deformity without retropulsion. No prevertebral soft tissue swe lling. Correlate with prior imaging to assess stability. Followup per final report recommendations. 6. Additional findings, as above. ELECTRONICALLY SIGNED BY: Dmitriy Duron DO Apr 21, 2019 6:06:08 AM CREDIT CARD CONTROL CLERK This report is intended for review by the ordering physician only, in accordance of law. If you recei ve this report in error, please call [facility] at [phone]. FINAL REPORT EMERGENCY AFTER HOURS CT ANGIOGRAM CHEST WITH 3D RENDERING: Date: 04/21/2019 Time: 0447 hours IMPRESSION: No convincing CT evidence for acute pulmonary embolism. Evidence for congestive heart failure. Patchy air space opacities including a nodular focus in the right upper lobe. Borderline size hilar and med iastinal lymph nodes. Evidence for minimal thickening of the distal esophagus wall. This report is in agreement with preliminary report by [facility]. POS: [facility]
[2019-04-21] MEDS ORDERED: Iopamidol-370 76% 500 ML 1 ML ONE (10:57)
== END 2019-04-21 06:45 | disposition home or self-care (01) ==
LOC: ERS 03:21
DX: J18.9 Pneumonia, unspecified organism (principal); J45.909 Unspecified asthma, uncomplicated; E78.5 Hyperlipidemia, unspecified; E78.00 Pure hypercholesterolemia, unspecified; F41.9 Anxiety disorder, unspecified; F31.9 Bipolar disorder, unspecified; F90.9 Attention-deficit hyperactivity disorder, unspecified type; F20.9 Schizophrenia, unspecified; Z79.899 Other long term (current) drug therapy; Z71.6 Tobacco abuse counseling
CPT/HCPCS: 36415; 71045; 71275; 85379; 93005; 99406; J7611; J7620; Q9967

== ENCOUNTER 2019-04-29 01:43 | Emergency (ER) | payer OTHER ==
--- NOTE | 2019-04-29 07:12 | RAD ---
CHEST 1 VIEW: Date: 04/29/2019 INDICATION: History of cough. COMPARISON: Prior exam dated 04/21/2019. FINDINGS: There is cardiomegaly with pulmonary vascular congestion and interstitial edema, which appears slight ly less pronounced than on the comparison examination. There are tiny pleural effusions. No acute oss eous abnormality is evident. IMPRESSION: Findings suspicious for mild CHF. POS: [facility]
== END 2019-04-29 02:50 | disposition home or self-care (01) ==
LOC: ERS 01:43
DX: R05 Cough (principal); E78.5 Hyperlipidemia, unspecified; E78.00 Pure hypercholesterolemia, unspecified; I10 Essential (primary) hypertension; J45.909 Unspecified asthma, uncomplicated; F41.9 Anxiety disorder, unspecified; F31.9 Bipolar disorder, unspecified; F90.9 Attention-deficit hyperactivity disorder, unspecified type; F20.9 Schizophrenia, unspecified; F17.210 Nicotine dependence, cigarettes, uncomplicated
CPT/HCPCS: 71046

== ENCOUNTER 2020-06-28 20:14 | Inpatient (IN) | payer OTHER ==
[~2020-06-28 20:14] MED LIST: Iopamidol-370 76% 500 ML 1 ML ONE
[2020-06-28 20:58] LABS: #Basophils 0.1 thou/uL (0.0-0.2); #Eosinphils 0.1 thou/uL (0.0-0.7); #Lymphocytes 3.4 thou/uL (1.20-3.40); #Monocytes 0.7 thou/uL (0.11-0.59); #Neutrophils 5.3 thou/uL (1.40-6.50); %Basophils 1.1 % (0.0-1.0); %Eosinophils 0.9 % (0.0-10.0); %Lymphocytes 35.5 % (21.0-51.0); %Monocytes 7.5 % (0.0-10.0); %Neutrophils 55.1 % (42.0-75.0); Hemoglobin 16.6 g/dL (12.0-16.0); Mean Corpuscular HGB CONC 31.8 g/dL (32.0-36.0); Mean Corpuscular Hemoglobin 31.2 pg (27.0-31.0); Mean Corpuscular Volume 98.1 fL (78.0-98.0); Platelet Count 236 thou/uL (130-400); RBC Distribution Width 13.7 % (11.5-14.5); Red Blood Cell (RBC) Count 5.33 mill/uL (4.20-5.40); White Blood Cell (WBC) Count 9.6 thou/uL (4.8-10.8)
[2020-06-28 21:06] LABS: ALT (SGPT) 64 U/L (8-55); AST (SGOT) 52 U/L (5-34); Albumin 3.1 g/dL (3.5-5.0); Alkaline Phosphatase 108 U/L (40-110); Anion Gap 16 mmol/L (10-20); BUN (Urea Nitrogen) 37 mg/dL (9.8-20.1); Calc. Creatinine Clearance 0 mL/min (70-130); Calcium 8.9 mg/dL (7.8-10.44); Carbon Dioxide 23 mmol/L (22-29); Chloride 105 mmol/L (98-107); Globulin 3.4 g/dL (2.4-3.5); Glucose 179 mg/dL (70-105); Potassium 4.5 mmol/L (3.5-5.1); Protein, Total 6.5 g/dL (6.0-8.3); Sodium 139 mmol/L (136-145)
[2020-06-28 21:26] LABS: CKMB 3.1 ng/mL (0-6.6)
[2020-06-29 02:12] VITALS: BMI 27.7
[2020-06-29] MEDS ORDERED: Ondansetron PF 4 MG/2 ML Vial IVP PRN (02:46)
[2020-06-29] MEDS ORDERED: hydrALAZINE 20 MG/ML VIAL SLOW IVP PRN (02:46)
[2020-06-29] MEDS ORDERED: Acetaminophen 325 MG TAB PO PRN (02:46)
[2020-06-29 04:02] LABS: Amphetamine Not Detected (NotDetected); Barbiturates Screen Not Detected (NotDetected); Benzodiazepine Screen Not Detected (NotDetected); Cocaine Metabolite Screen Detected (NotDetected); Medtox Control Line Valid? VALID (VALID); Medtox Reader # READER 4; Methadone Not Detected (NotDetected); Methamphetamine Not Detected (NotDetected); Opiate Screen Not Detected (NotDetected); Oxycodone Screen Not Detected (NotDetected); Phencyclidine (PCP) Not Detected (NotDetected); THC/Cannabinoid Screen Not Detected (NotDetected); Tricyclic Screen Not Detected (NotDetected)
[2020-06-29 04:48] LABS: #Basophils 0.1 thou/uL (0.0-0.2); #Eosinphils 0.1 thou/uL (0.0-0.7); #Lymphocytes 3.2 thou/uL (1.20-3.40); #Monocytes 0.9 thou/uL (0.11-0.59); %Basophils 1.1 % (0.0-1.0); %Eosinophils 1.4 % (0.0-10.0); %Monocytes 8.7 % (0.0-10.0); %Neutrophils 57.8 % (42.0-75.0); Hemoglobin 15.3 g/dL (12.0-16.0); Mean Corpuscular HGB CONC 31.6 g/dL (32.0-36.0); Mean Corpuscular Hemoglobin 30.8 pg (27.0-31.0); Mean Corpuscular Volume 97.4 fL (78.0-98.0); Mean Platelet Volume 8.9 fL (7.4-10.4); Platelet Count 219 thou/uL (130-400); RBC Distribution Width 13.6 % (11.5-14.5); Red Blood Cell (RBC) Count 4.97 mill/uL (4.20-5.40); White Blood Cell (WBC) Count 10.4 thou/uL (4.8-10.8)
[2020-06-29 05:21] LABS: Anion Gap 12 mmol/L (10-20); BUN (Urea Nitrogen) 33 mg/dL (9.8-20.1); Calc. Creatinine Clearance 48 mL/min (70-130); Calcium 8.5 mg/dL (7.8-10.44); Carbon Dioxide 22 mmol/L (22-29); Cardiac Risk 7.6 (Less than 4.5); Chloride 106 mmol/L (98-107); Cholesterol 136 mg/dl (< 200 Desired); Glucose 124 mg/dL (70-105); HDL Cholesterol 18 mg/dL (>60 Neg Risk); LDL Cholesterol, Calculated 101 mg/dL; Potassium 3.8 mmol/L (3.5-5.1); Sodium 136 mmol/L (136-145); Triglycerides 84 mg/dL (Less than 150)
[2020-06-29 05:23] LABS: Troponin I 0.065 ng/mL (< 0.028)
[2020-06-29 07:10] LABS: ALT (SGPT) 61 U/L (8-55); AST (SGOT) 42 U/L (5-34); Albumin 2.9 g/dL (3.5-5.0); Alkaline Phosphatase 94 U/L (40-110); Bilirubin, Total 1.6 mg/dL (0.2-1.2); Protein, Total 6.1 g/dL (6.0-8.3)
[2020-06-29 07:14] LABS: Troponin I 0.078 ng/mL (< 0.028)
[2020-06-29] MEDS ORDERED: Carvedilol 3.125 MG TAB PO SCH (09:00)
[2020-06-29] MEDS ORDERED: Aspirin 81 mg Enteric Coated Tablet PO SCH (09:00)
[2020-06-29] MEDS: Furosemide 20 MG TAB PO SCH (09:09)
[2020-06-29] MEDS: Carvedilol 3.125 MG TAB PO SCH (16:34)
[2020-06-29] MEDS: Atorvastatin Calcium 40 MG TAB PO SCH (21:39)
[2020-06-30 07:16] LABS: #Basophils 0.1 thou/uL (0.0-0.2); #Eosinphils 0.2 thou/uL (0.0-0.7); #Lymphocytes 2.6 thou/uL (1.20-3.40); #Monocytes 0.7 thou/uL (0.11-0.59); #Neutrophils 4.1 thou/uL (1.40-6.50); %Basophils 1.1 % (0.0-1.0); %Eosinophils 2.7 % (0.0-10.0); %Neutrophils 53.2 % (42.0-75.0); Hemoglobin 13.9 g/dL (12.0-16.0); Mean Corpuscular HGB CONC 32.1 g/dL (32.0-36.0); Mean Corpuscular Hemoglobin 31.7 pg (27.0-31.0); Mean Corpuscular Volume 98.7 fL (78.0-98.0); Platelet Count 194 thou/uL (130-400); RBC Distribution Width 13.4 % (11.5-14.5); Red Blood Cell (RBC) Count 4.39 mill/uL (4.20-5.40); White Blood Cell (WBC) Count 7.8 thou/uL (4.8-10.8)
[2020-06-30 07:28] LABS: Anion Gap 8 mmol/L (10-20); BUN (Urea Nitrogen) 27 mg/dL (9.8-20.1); Calc. Creatinine Clearance 54 mL/min (70-130); Calcium 8.8 mg/dL (7.8-10.44); Carbon Dioxide 28 mmol/L (22-29); Chloride 107 mmol/L (98-107); Glucose 120 mg/dL (70-105); Potassium 3.6 mmol/L (3.5-5.1); Sodium 139 mmol/L (136-145)
[2020-06-30 07:29] LABS: ALT (SGPT) 39 U/L (8-55); AST (SGOT) 29 U/L (5-34); Albumin 2.5 g/dL (3.5-5.0); Alkaline Phosphatase 87 U/L (40-110); Bilirubin, Direct 0.7 mg/dL (0.1-0.3); Bilirubin, Total 1.1 mg/dL (0.2-1.2); Protein, Total 5.2 g/dL (6.0-8.3)
[2020-06-30 07:33] LABS: Hemoglobin A1c 6.2 % (4.0-6.0)
[2020-06-30] MEDS: Carvedilol 3.125 MG TAB PO SCH ×2 (08:36→15:39)
[2020-06-30] MEDS: Furosemide 20 MG TAB PO SCH (08:36)
[2020-06-30] MEDS ORDERED: Furosemide 20 MG/2 ML VIAL SLOW IVP SCH (15:00)
[2020-06-30] MEDS ORDERED: Ziprasidone 20 MG CAP PO PRN (21:13)
[2020-06-30] MEDS: Atorvastatin Calcium 40 MG TAB PO SCH (21:54)
[2020-07-01] MEDS: Aspirin 81 mg Enteric Coated Tablet PO SCH (09:11)
[2020-07-01] MEDS: Furosemide 20 MG TAB PO SCH ×2 (11:15→14:41)
[2020-07-01] MEDS: Carvedilol 3.125 MG TAB PO SCH ×2 (12:37→16:38)
[2020-07-01] MEDS ORDERED: metFORMIN 500 MG TAB PO SCH (17:00)
[2020-07-01] MEDS: Atorvastatin Calcium 40 MG TAB PO SCH (20:36)
[2020-07-02 08:36] VITALS: TEMP 97.9
[2020-07-02] MEDS: Carvedilol 3.125 MG TAB PO SCH (08:39)
[2020-07-02] MEDS: Aspirin 81 mg Enteric Coated Tablet PO SCH (08:40)
[2020-07-02] MEDS: Furosemide 20 MG TAB PO SCH ×2 (08:40→15:29)
[2020-07-02 11:36] VITALS: BP 108/85
== END 2020-07-02 15:06 | disposition home or self-care (01) | DRG 69 ==
LOC: ERS 20:14 → 2NO 06-29 → OBSVTOIN 07-01 09:20
PROVIDERS: ADMIT Internal Medicine; ATTEND Internal Medicine
DX: G45.9 Transient cerebral ischemic attack, unspecified (principal); I42.8 Other cardiomyopathies; G81.91 Hemiplegia, unspecified affecting right dominant side; I13.0 Hypertensive heart and chronic kidney disease with heart failure and stage 1 through stage 4 chronic kidney disease, or unspecified chronic kidney disease; I50.42 Chronic combined systolic (congestive) and diastolic (congestive) heart failure; I47.2 Ventricular tachycardia; Z20.822 Contact with and (suspected) exposure to COVID-19; F17.210 Nicotine dependence, cigarettes, uncomplicated; F14.10 Cocaine abuse, uncomplicated; J44.9 Chronic obstructive pulmonary disease, unspecified; N18.30 Chronic kidney disease, stage 3 unspecified; F31.9 Bipolar disorder, unspecified; I08.3 Combined rheumatic disorders of mitral, aortic and tricuspid valves; E78.00 Pure hypercholesterolemia, unspecified; E78.5 Hyperlipidemia, unspecified; R77.8 Other specified abnormalities of plasma proteins; R74.8 Abnormal levels of other serum enzymes; I48.0 Paroxysmal atrial fibrillation; Z79.51 Long term (current) use of inhaled steroids; Z79.82 Long term (current) use of aspirin; Z88.6 Allergy status to analgesic agent; Z91.14 Patient's other noncompliance with medication regimen; Z79.899 Other long term (current) drug therapy
CPT/HCPCS: 36415; 70450; 70496; 70498; 70551; 76705; 80048; 80053; 80061; 80076; 80306; 82553; 83036; 84484; 85025; 93005; 95712; 95819; 95957; 96374; G0378; J1940; Q9967

== ENCOUNTER 2020-07-18 15:20 | Emergency (ER) | payer OTHER ==
[2020-07-18 16:13] LABS: #Basophils 0.1 thou/uL (0.0-0.2); #Eosinphils 0.2 thou/uL (0.0-0.7); #Lymphocytes 3.5 thou/uL (1.20-3.40); #Monocytes 0.6 thou/uL (0.11-0.59); #Neutrophils 4.3 thou/uL (1.40-6.50); %Basophils 0.8 % (0.0-1.0); %Eosinophils 2.8 % (0.0-10.0); %Monocytes 7.1 % (0.0-10.0); %Neutrophils 49.2 % (42.0-75.0); Mean Corpuscular Hemoglobin 31.4 pg (27.0-31.0); Mean Corpuscular Volume 95.2 fL (78.0-98.0); Mean Platelet Volume 9.3 fL (7.4-10.4); Platelet Count 213 thou/uL (130-400); RBC Distribution Width 13.9 % (11.5-14.5); Red Blood Cell (RBC) Count 4.76 mill/uL (4.20-5.40); White Blood Cell (WBC) Count 8.8 thou/uL (4.8-10.8)
[2020-07-18 16:31] LABS: ALT (SGPT) 22 U/L (8-55); AST (SGOT) 28 U/L (5-34); Albumin 3.3 g/dL (3.5-5.0); Alkaline Phosphatase 139 U/L (40-110); Anion Gap 12 mmol/L (10-20); BUN (Urea Nitrogen) 35 mg/dL (9.8-20.1); Bilirubin, Total 1.3 mg/dL (0.2-1.2); Calc. Creatinine Clearance 0 mL/min (70-130); Calcium 9.4 mg/dL (7.8-10.44); Carbon Dioxide 20 mmol/L (22-29); Chloride 110 mmol/L (98-107); Globulin 3.7 g/dL (2.4-3.5); Glucose 107 mg/dL (70-105); Potassium 3.9 mmol/L (3.5-5.1); Sodium 138 mmol/L (136-145)
[2020-07-18 16:40] LABS: Acetaminophen Less than 6.0 mcg/mL (10.0-30.0); Alcohol Less than 10 mg/dL (Less than 10); Magnesium 1.9 mg/dL (1.6-2.6); Salicylate Less than 8.0 mg/dL (15.0-30.0)
[2020-07-18 17:16] LABS: Bilirubin Negative (Negative); Blood, Urine Negative (Negative); Glucose, Urine (Dipstick) Normal (Negative); Ketone, Urine Negative (Negative); Leukocyte 25 Leu/uL (Negative); Nitrite Negative (Negative); Protein, Urine (Dipstick) 70 mg/dL (Neg-Trace); RBC/HPF 0-3 HPF (0-3); Specific Gravity, Urine 1.022 (1.002-1.036); Squamous Epithelial 0-3 HPF (0-3); WBC/HPF 0-3 HPF (0-3); pH, Urine 5.5 (5.0-9.0)
[2020-07-18 17:17] LABS: Bacteria/HPF 1+ HPF (None Seen); Clarity Cloudy (Clear)
[2020-07-18 17:26] LABS: Amphetamine Not Detected (NotDetected); Barbiturates Screen Not Detected (NotDetected); Benzodiazepine Screen Not Detected (NotDetected); Cocaine Metabolite Screen Not Detected (NotDetected); Medtox Control Line Valid? VALID (VALID); Medtox Reader # READER 4; Methadone Not Detected (NotDetected); Methamphetamine Not Detected (NotDetected); Opiate Screen Not Detected (NotDetected); Oxycodone Screen Not Detected (NotDetected); Phencyclidine (PCP) Not Detected (NotDetected); THC/Cannabinoid Screen Not Detected (NotDetected); Tricyclic Screen Detected (NotDetected)
[2020-07-18] MEDS ORDERED: Furosemide 20 MG/2 ML VIAL ONE ×2 (17:39→17:44)
[2020-07-18] MEDS ORDERED: Furosemide 40 MG/4 ML VIAL ONE ×2 (17:39→17:44)
== END 2020-07-18 17:58 | disposition home or self-care (01) ==
LOC: ERS 15:20
DX: I11.0 Hypertensive heart disease with heart failure (principal); I50.9 Heart failure, unspecified; E11.9 Type 2 diabetes mellitus without complications; E78.5 Hyperlipidemia, unspecified; E78.00 Pure hypercholesterolemia, unspecified; J44.9 Chronic obstructive pulmonary disease, unspecified; Z87.891 Personal history of nicotine dependence; Z91.14 Patient's other noncompliance with medication regimen; Z79.899 Other long term (current) drug therapy
CPT/HCPCS: 36415; 51701; 71045; 74019; 80053; 80306; 80307; 81003; 81015; 82553; 83735; 83880; 84484; 85025; 93005; 96372; J1940

== ENCOUNTER 2020-08-09 13:23 | Emergency (ER) | payer OTHER | END 2020-08-09 14:52 | disposition home or self-care (01) | LOC: ERS 13:23 | DX: F41.9 Anxiety disorder, unspecified (principal); Z76.0 Encounter for issue of repeat prescription; E11.9 Type 2 diabetes mellitus without complications; E78.5 Hyperlipidemia, unspecified; E78.00 Pure hypercholesterolemia, unspecified; I10 Essential (primary) hypertension; Z87.891 Personal history of nicotine dependence; Z79.899 Other long term (current) drug therapy | CPT/HCPCS: 99281 ==

== ENCOUNTER 2020-08-10 20:43 | Emergency (ER) | payer OTHER ==
[2020-08-10 22:32] LABS: Bilirubin Negative (Negative); Blood, Urine Negative (Negative); Clarity Clear (Clear); Glucose, Urine (Dipstick) Normal (Negative); Ketone, Urine Negative (Negative); Leukocyte 500 Leu/uL (Negative); Mucous/LPF Rare LPF (<2+); Nitrite Negative (Negative); Pregnancy Test - Urine (BHCG) Negative (Negative); Pregu Control Background? CLEAR/WHITE (CLR/WHITE); Pregu Control Bar Appear? YES (CONTROL BAR); Protein, Urine (Dipstick) 30 mg/dL (Neg-Trace); Specific Gravity 1.016 (1.002-1.036); Specific Gravity, Urine 1.016 (1.002-1.036); Squamous Epithelial 0-3 HPF (0-3); Urobilinogen 6 mg/dL (Less than 2); pH, Urine 5.5 (5.0-9.0)
[2020-08-10 22:38] LABS: Cocaine Metabolite Screen Detected (NotDetected); Medtox Reader # READER 4; Phencyclidine (PCP) Not Detected (NotDetected); THC/Cannabinoid Screen Not Detected (NotDetected)
[2020-08-10 22:39] LABS: Amphetamine Not Detected (NotDetected); Barbiturates Screen Not Detected (NotDetected); Benzodiazepine Screen Not Detected (NotDetected); Medtox Control Line Valid? VALID (VALID); Methadone Not Detected (NotDetected); Methamphetamine Not Detected (NotDetected); Opiate Screen Not Detected (NotDetected); Oxycodone Screen Not Detected (NotDetected); Tricyclic Screen Detected (NotDetected)
[2020-08-10 22:46] LABS: Bacteria/HPF 1+ HPF (None Seen)
[2020-08-10 22:50] LABS: #Eosinphils 0.1 thou/uL (0.0-0.7); #Lymphocytes 1.5 thou/uL (1.20-3.40); #Monocytes 0.6 thou/uL (0.11-0.59); #Neutrophils 5.3 thou/uL (1.40-6.50); %Basophils 0.5 % (0.0-1.0); %Eosinophils 1.1 % (0.0-10.0); %Lymphocytes 19.5 % (21.0-51.0); %Monocytes 7.7 % (0.0-10.0); %Neutrophils 71.1 % (42.0-75.0); Hemoglobin 14.8 g/dL (12.0-16.0); Mean Corpuscular HGB CONC 32.3 g/dL (32.0-36.0); Mean Corpuscular Hemoglobin 31.1 pg (27.0-31.0); Mean Corpuscular Volume 96.2 fL (78.0-98.0); Mean Platelet Volume 9.4 fL (7.4-10.4); Platelet Count 171 thou/uL (130-400); RBC Distribution Width 14.2 % (11.5-14.5); Red Blood Cell (RBC) Count 4.78 mill/uL (4.20-5.40); White Blood Cell (WBC) Count 7.5 thou/uL (4.8-10.8)
[2020-08-10] MEDS ORDERED: Acetaminophen 500 MG TAB ONE (23:00)
[2020-08-10 23:04] LABS: ALT (SGPT) 18 U/L (8-55); AST (SGOT) 29 U/L (5-34); Albumin 3.5 g/dL (3.5-5.0); Alkaline Phosphatase 113 U/L (40-110); Anion Gap 19 mmol/L (10-20); BUN (Urea Nitrogen) 24 mg/dL (9.8-20.1); Bilirubin, Total 2.2 mg/dL (0.2-1.2); Calc. Creatinine Clearance 0 mL/min (70-130); Calcium 9.1 mg/dL (7.8-10.44); Carbon Dioxide 23 mmol/L (22-29); Chloride 101 mmol/L (98-107); Globulin 3.8 g/dL (2.4-3.5); Glucose 135 mg/dL (70-105); Potassium 3.8 mmol/L (3.5-5.1); Protein, Total 7.3 g/dL (6.0-8.3); Sodium 139 mmol/L (136-145)
[2020-08-10 23:08] LABS: Acetaminophen Less than 6.0 mcg/mL (10.0-30.0); Alcohol Less than 10 mg/dL (Less than 10); Salicylate Less than 8.0 mg/dL (15.0-30.0)
[2020-08-10 23:32] LABS: CKMB 0.8 ng/mL (0-6.6)
[2020-08-11] MEDS ORDERED: Furosemide 40 MG TAB ONE (11:39)
[2020-08-11] MEDS ORDERED: Carvedilol 3.125 MG TAB PO SCH ×2 (12:00→21:00)
[2020-08-11] MEDS ORDERED: hydrOXYzine 25 MG TAB ONE (13:02)
[2020-08-11] MEDS ORDERED: Albuterol Sulfate 2.5 mg/3 ml Neb ONE (14:58)
[2020-08-11] MEDS ORDERED: hydrOXYzine Pamoate 25 mg Capsule ONE (23:58)
[2020-08-12] MEDS ORDERED: Furosemide 40 MG TAB ONE (07:54)
[2020-08-12] MEDS ORDERED: hydrOXYzine Pamoate 25 mg Capsule ONE (07:54)
== END 2020-08-12 14:11 ==
LOC: ERS 20:43
DX: R45.851 Suicidal ideations (principal); E11.9 Type 2 diabetes mellitus without complications; E78.5 Hyperlipidemia, unspecified; I10 Essential (primary) hypertension; E78.00 Pure hypercholesterolemia, unspecified; J44.9 Chronic obstructive pulmonary disease, unspecified; Z79.899 Other long term (current) drug therapy; Z87.891 Personal history of nicotine dependence
CPT/HCPCS: 36415; 71045; 80053; 80306; 80307; 81003; 81015; 81025; 82553; 83605; 84443; 84484; 85025; 93005; 94640; J7611; J7620; Q0177

== ENCOUNTER 2020-10-12 | Emergency (ER) | payer OTHER | END 2020-10-12 16:52 | disposition home or self-care (01) ==

== ENCOUNTER 2021-04-17 20:19 | Inpatient (IN) | payer OTHER ==
[2021-04-17 21:19] LABS: #Basophils 0.1 thou/uL (0.0-0.2); #Eosinphils 0.2 thou/uL (0.0-0.7); #Lymphocytes 2.7 thou/uL (1.20-3.40); #Monocytes 0.9 thou/uL (0.11-0.59); #Neutrophils 5.4 thou/uL (1.40-6.50); %Basophils 1.1 % (0.0-1.0); %Eosinophils 1.9 % (0.0-10.0); %Monocytes 9.3 % (0.0-10.0); %Neutrophils 58.7 % (42.0-75.0); Hemoglobin 12.7 g/dL (12.0-16.0); Mean Corpuscular HGB CONC 30.8 g/dL (32.0-36.0); Mean Corpuscular Hemoglobin 31.3 pg (27.0-31.0); Mean Platelet Volume 9.3 fL (7.4-10.4); Platelet Count 291 thou/uL (130-400); RBC Distribution Width 17.2 % (11.5-14.5); Red Blood Cell (RBC) Count 4.05 mill/uL (4.20-5.40); White Blood Cell (WBC) Count 9.2 thou/uL (4.8-10.8)
[2021-04-17] MEDS ORDERED: Furosemide 100 MG/10 ML VIAL ONE (21:23)
[2021-04-17 22:03] LABS: CKMB 0.9 ng/mL (0-6.6)
[2021-04-17 22:30] LABS: Albumin 3.4 g/dL (3.5-5.0)
[2021-04-17 22:31] LABS: Chloride 104 mmol/L (98-107); Potassium 3.6 mmol/L (3.5-5.1); Sodium 141 mmol/L (136-145)
[2021-04-17 22:32] LABS: Glucose 97 mg/dL (70-105)
[2021-04-17 22:33] LABS: Globulin 4.5 g/dL (2.4-3.5); Protein, Total 7.9 g/dL (6.0-8.3)
[2021-04-17 22:34] LABS: Anion Gap 14 mmol/L (10-20); Bilirubin, Total 3.1 mg/dL (0.2-1.2); Carbon Dioxide 27 mmol/L (22-29)
[2021-04-17 22:35] LABS: Alkaline Phosphatase 237 U/L (40-110)
[2021-04-17 22:36] LABS: Calc. Creatinine Clearance 0 mL/min (70-130)
[2021-04-17 22:37] LABS: AST (SGOT) 32 U/L (5-34); BUN (Urea Nitrogen) 12 mg/dL (9.8-20.1)
[2021-04-17 22:38] LABS: ALT (SGPT) 13 U/L (8-55)
[2021-04-17] MEDS ORDERED: Potassium Chloride 20 MEQ TAB ONE (22:53)
[2021-04-17] MEDS ORDERED: Potassium Chloride 20 MEQ/100 ML PREMIX BAG ONE (22:53)
[2021-04-18 00:37] VITALS: BMI 29.4
[2021-04-18] MEDS ORDERED: Furosemide 40 MG/4 ML VIAL SLOW IVP SCH (03:00)
[2021-04-18] MEDS ORDERED: Ondansetron PF 4 MG/2 ML Vial IVP PRN (03:44)
[2021-04-18] MEDS ORDERED: Acetaminophen 500 MG TAB PO PRN (03:48)
[2021-04-18] MEDS: Furosemide 40 MG/4 ML VIAL SLOW IVP SCH ×2 (04:52→13:06)
[2021-04-18 07:06] LABS: #Basophils 0.1 thou/uL (0.0-0.2); #Eosinphils 0.1 thou/uL (0.0-0.7); #Lymphocytes 2.7 thou/uL (1.20-3.40); #Monocytes 1.1 thou/uL (0.11-0.59); #Neutrophils 6.3 thou/uL (1.40-6.50); %Basophils 0.8 % (0.0-1.0); %Eosinophils 0.6 % (0.0-10.0); %Lymphocytes 26.4 % (21.0-51.0); %Monocytes 10.5 % (0.0-10.0); %Neutrophils 61.7 % (42.0-75.0); Hemoglobin 13.3 g/dL (12.0-16.0); Mean Corpuscular HGB CONC 30.7 g/dL (32.0-36.0); Mean Platelet Volume 9.2 fL (7.4-10.4); Platelet Count 269 thou/uL (130-400); RBC Distribution Width 17.3 % (11.5-14.5); Red Blood Cell (RBC) Count 4.27 mill/uL (4.20-5.40); White Blood Cell (WBC) Count 10.3 thou/uL (4.8-10.8)
[2021-04-18] MEDS ORDERED: HumaLOG 300 UNITS/3 ML VIAL SC PRN ×2 (07:06)
[2021-04-18] MEDS ORDERED: Dextrose 5% in Water 1,000 ML IV PRN (07:06)
[2021-04-18] MEDS ORDERED: Dextrose 50% Abboject 50 ML SYRINGE SLOW IVP PRN (07:06)
[2021-04-18] MEDS: Enoxaparin Sodium 30 MG/0.3 ML SYRINGE SC SCH (08:27)
[2021-04-18] MEDS: Carvedilol 3.125 MG TAB PO SCH ×2 (08:27→16:58)
[2021-04-18] MEDS: Aspirin 81 mg Enteric Coated Tablet PO SCH (08:27)
[2021-04-18 11:34] LABS: Troponin I 0.028 ng/mL (< 0.028)
[2021-04-18 14:47] LABS: Troponin I 0.028 ng/mL (< 0.028)
[2021-04-18] MEDS: Atorvastatin Calcium 40 MG TAB PO SCH (21:31)
[2021-04-19] MEDS: Furosemide 40 MG/4 ML VIAL SLOW IVP SCH ×2 (05:28→15:28)
[2021-04-19 06:22] LABS: #Basophils 0.1 thou/uL (0.0-0.2); #Eosinphils 0.3 thou/uL (0.0-0.7); #Lymphocytes 2.4 thou/uL (1.20-3.40); #Monocytes 0.6 thou/uL (0.11-0.59); #Neutrophils 4.8 thou/uL (1.40-6.50); %Basophils 0.8 % (0.0-1.0); %Eosinophils 3.1 % (0.0-10.0); %Lymphocytes 29.3 % (21.0-51.0); %Monocytes 7.4 % (0.0-10.0); %Neutrophils 59.3 % (42.0-75.0); Hemoglobin 12.5 g/dL (12.0-16.0); Mean Platelet Volume 8.8 fL (7.4-10.4); Platelet Count 269 thou/uL (130-400); RBC Distribution Width 17.2 % (11.5-14.5); Red Blood Cell (RBC) Count 4.04 mill/uL (4.20-5.40); White Blood Cell (WBC) Count 8.1 thou/uL (4.8-10.8)
[2021-04-19 06:43] LABS: ALT (SGPT) 12 U/L (8-55); AST (SGOT) 23 U/L (5-34); Albumin 2.9 g/dL (3.5-5.0); Alkaline Phosphatase 188 U/L (40-110); Anion Gap 14 mmol/L (10-20); BUN (Urea Nitrogen) 14 mg/dL (9.8-20.1); Bilirubin, Total 2.9 mg/dL (0.2-1.2); Calc. Creatinine Clearance 68 mL/min (70-130); Calcium 8.9 mg/dL (7.8-10.44); Carbon Dioxide 26 mmol/L (22-29); Chloride 103 mmol/L (98-107); Globulin 3.6 g/dL (2.4-3.5); Glucose 97 mg/dL (70-105); Protein, Total 6.5 g/dL (6.0-8.3); Sodium 140 mmol/L (136-145)
[2021-04-19] MEDS: Enoxaparin Sodium 30 MG/0.3 ML SYRINGE SC SCH (08:30)
[2021-04-19] MEDS: Aspirin 81 mg Enteric Coated Tablet PO SCH (08:30)
[2021-04-19] MEDS: Carvedilol 3.125 MG TAB PO SCH (08:30)
[2021-04-19 14:02] LABS: Amphetamine Not Detected (NotDetected); Barbiturates Screen Not Detected (NotDetected); Benzodiazepine Screen Not Detected (NotDetected); Cocaine Metabolite Screen Not Detected (NotDetected); Methadone Not Detected (NotDetected); Methamphetamine Not Detected (NotDetected); Opiate Screen Not Detected (NotDetected); Oxycodone Screen Not Detected (NotDetected); Phencyclidine (PCP) Not Detected (NotDetected); THC/Cannabinoid Screen Not Detected (NotDetected); Tricyclic Screen Not Detected (NotDetected)
[2021-04-19] MEDS: Atorvastatin Calcium 40 MG TAB PO SCH (20:51)
[2021-04-20 04:21] LABS: #Basophils 0.1 thou/uL (0.0-0.2); #Eosinphils 0.4 thou/uL (0.0-0.7); #Lymphocytes 2.4 thou/uL (1.20-3.40); #Monocytes 0.6 thou/uL (0.11-0.59); #Neutrophils 4.8 thou/uL (1.40-6.50); %Basophils 0.7 % (0.0-1.0); %Eosinophils 4.4 % (0.0-10.0); %Lymphocytes 29.1 % (21.0-51.0); %Monocytes 7.4 % (0.0-10.0); %Neutrophils 58.5 % (42.0-75.0); Hemoglobin 12.4 g/dL (12.0-16.0); Mean Corpuscular HGB CONC 30.9 g/dL (32.0-36.0); Mean Corpuscular Hemoglobin 31.3 pg (27.0-31.0); Mean Platelet Volume 8.9 fL (7.4-10.4); Platelet Count 286 thou/uL (130-400); Red Blood Cell (RBC) Count 3.96 mill/uL (4.20-5.40); White Blood Cell (WBC) Count 8.2 thou/uL (4.8-10.8)
[2021-04-20 04:42] LABS: ALT (SGPT) 9 U/L (8-55); AST (SGOT) 23 U/L (5-34); Alkaline Phosphatase 201 U/L (40-110); Anion Gap 12 mmol/L (10-20); BUN (Urea Nitrogen) 14 mg/dL (9.8-20.1); Bilirubin, Total 2.4 mg/dL (0.2-1.2); Calc. Creatinine Clearance 78 mL/min (70-130); Calcium 8.9 mg/dL (7.8-10.44); Carbon Dioxide 31 mmol/L (22-29); Chloride 101 mmol/L (98-107); Globulin 3.9 g/dL (2.4-3.5); Glucose 111 mg/dL (70-105); Potassium 3.1 mmol/L (3.5-5.1); Protein, Total 6.9 g/dL (6.0-8.3); Sodium 141 mmol/L (136-145)
[2021-04-20] MEDS: Furosemide 40 MG/4 ML VIAL SLOW IVP SCH (05:19)
[2021-04-20] MEDS ORDERED: Levothyroxine Sodium 50 MCG TAB PO SCH (06:00)
[2021-04-20] MEDS ORDERED: pyridOXINE 50 MG (B6) TAB PO SCH (09:00)
[2021-04-20] MEDS ORDERED: Thiamine 100 MG TAB PO SCH (09:00)
[2021-04-20] MEDS ORDERED: Lisinopril 5 MG TAB PO SCH (09:00)
[2021-04-20] MEDS ORDERED: Folic Acid 1 MG TAB PO SCH (09:00)
[2021-04-20] MEDS ORDERED: Digoxin 0.125 MG TAB PO SCH (09:00)
[2021-04-20] MEDS: Aspirin 81 mg Enteric Coated Tablet PO SCH (10:02)
[2021-04-20] MEDS: Enoxaparin Sodium 30 MG/0.3 ML SYRINGE SC SCH (10:02)
[2021-04-20 11:57] VITALS: BP 134/86; TEMP 97.9
== END 2021-04-20 14:00 | disposition home or self-care (01) | DRG 291 ==
LOC: ERS 20:19 → 2NO 22:57
PROVIDERS: ADMIT Internal Medicine; ATTEND Internal Medicine
DX: I13.0 Hypertensive heart and chronic kidney disease with heart failure and stage 1 through stage 4 chronic kidney disease, or unspecified chronic kidney disease (principal); I50.23 Acute on chronic systolic (congestive) heart failure; R18.8 Other ascites; J44.9 Chronic obstructive pulmonary disease, unspecified; N18.30 Chronic kidney disease, stage 3 unspecified; E11.22 Type 2 diabetes mellitus with diabetic chronic kidney disease; F14.10 Cocaine abuse, uncomplicated; K74.60 Unspecified cirrhosis of liver; Z86.74 Personal history of sudden cardiac arrest; Z79.51 Long term (current) use of inhaled steroids; Z79.82 Long term (current) use of aspirin; Z79.899 Other long term (current) drug therapy; Z79.890 Hormone replacement therapy
CPT/HCPCS: 36415; 36416; 71045; 76705; 80053; 80306; 82553; 83880; 84484; 85025; 93005; 94640; 94760; 96374; J1650; J1940; J3480; J7620

== ENCOUNTER 2021-08-19 15:50 | Emergency (ER) | payer SELFPAY ==
[2021-08-19 16:45] LABS: Hemoglobin 14.3 g/dL (12.0-16.0); Mean Corpuscular HGB CONC 28.5 g/dL (32.0-36.0); Mean Platelet Volume 10.4 fL (7.4-10.4); Platelet Count 235 thou/uL (130-400); RBC Distribution Width 16.9 % (11.5-14.5); Red Blood Cell (RBC) Count 4.95 mill/uL (4.20-5.40)
[2021-08-19 16:56] LABS: INR-International Normal Ratio 1.5; PTT 37.9 sec (22.9-36.1); Prothrombin Time 18.7 sec (12.0-14.7)
[2021-08-19 17:11] LABS: ALT (SGPT) 11 U/L (8-55); AST (SGOT) 32 U/L (5-34); Albumin 3.2 g/dL (3.5-5.0); Alkaline Phosphatase 164 U/L (40-110); Anion Gap 14 mmol/L (10-20); BUN (Urea Nitrogen) 22 mg/dL (9.8-20.1); Bilirubin, Total 3.9 mg/dL (0.2-1.2); Calc. Creatinine Clearance 0 mL/min (70-130); Calcium 8.9 mg/dL (7.8-10.44); Carbon Dioxide 27 mmol/L (22-29); Chloride 102 mmol/L (98-107); Globulin 4.3 g/dL (2.4-3.5); Glucose 147 mg/dL (70-105); Lipase 10 U/L (8-78); Potassium 3.2 mmol/L (3.5-5.1); Protein, Total 7.5 g/dL (6.0-8.3); Sodium 140 mmol/L (136-145)
[2021-08-19 17:18] LABS: Anisocytosis SLIGHT = 6-15 cells (100X) (0-5/hpf); Eosinophils 1 % (0-10); Hypochromia SLIGHT = 6-15 cells (100X) (0-5/hpf); Lymphocytes 33 % (21-51); MDiff Complete? YES; Macrocytosis SLIGHT = 6-15 cells (100X) (0-5/hpf); Monocytes 5 % (0-10); Neutrophil 61 % (42-75); Platelet Morphology Comment Appears Adequate; Polychromasia SLIGHT = 2-3 cells (100X) (0-2/hpf); Target Cells SLIGHT = 2-5 cells (100X) (0-1/hpf)
== END 2021-08-19 19:39 | disposition home or self-care (01) ==
LOC: ERS 15:50
DX: J44.1 Chronic obstructive pulmonary disease with (acute) exacerbation (principal); K74.60 Unspecified cirrhosis of liver; E11.9 Type 2 diabetes mellitus without complications; E78.5 Hyperlipidemia, unspecified; E78.00 Pure hypercholesterolemia, unspecified; I10 Essential (primary) hypertension; J44.9 Chronic obstructive pulmonary disease, unspecified; Z87.891 Personal history of nicotine dependence
CPT/HCPCS: 36415; 80053; 83690; 85025; 85610; 85730; 94640; J7620